=== PATIENT | female | born 1935 | race Caucasian/White ===

== ENCOUNTER 2016-08-17 21:50 | Inpatient (IN) | payer MEDICARE ==
[~2016-08-17] VITALS: Ht 152.4 cm; Wt 54.0 kg
[~2016-08-17 21:50] MED LIST: DOLOPHINE HCL10 MG PO; KLOR-CON 1010 MEQ PO; LASIX20 MG PO; SYNTHROID100 MCG PO; XANAX0.25 MG PO
[2016-08-17 22:22] LABS: BASOPHILS 0 % (0-2); EOSINOPHILS 0 % (0-7); HEMATOCRIT 34.2 % (36.0-48.0); HEMOGLOBIN 10.7 g/dL (12-16); IMMATURE GRANULOCYTES 0.4 % (0-5); LYMPHOCYTES 11.9 % (15-50); MCHC 31.3 g/dL (31.0-37.0); MCV 86.1 fL (80.0-100.0); MEAN PLATELET VOLUME 11.2 fL (7.4-10.4); MONOCYTES 5.1 % (2-11); NEUTROPHILS 82.6 % (40-80); PLATELET COUNT 253 10x3/uL (130-400); RBC 3.97 10x6/uL (4.00-5.40); RDW 15.2 % (11.5-14.5); WBC 7.6 10x3/uL (4.8-10.8)
[2016-08-17 22:24] LABS: APPEARANCE CLEAR (CLEAR); BILIRUBIN NEGATIVE (NEGATIVE); COLOR YELLOW (YELLOW); GLUCOSE NEGATIVE (NEGATIVE); KETONE NEGATIVE (NEGATIVE); LEUKOCYTE ESTERASE NEGATIVE (NEGATIVE); NITRITE NEGATIVE (NEGATIVE); PROTEIN TRACE mg/dL (NEGATIVE); UROBILINOGEN NORMAL (NORMAL)
[2016-08-17 22:59] LABS: ALBUMIN 3.3 g/dL (3.4-5.0); BILIRUBIN - TOTAL 0.25 mg/dL (0.2-1.3); CALCIUM 8.6 mg/dL (8.5-10.1); CARBON DIOXIDE 32.1 mmol/L (21.0-32.0); CREATININE - SERUM 1.2 mg/dL (0.6-1.3); POTASSIUM - SERUM 4.1 mmol/L (3.5-5.1); PROTEIN - SERUM 7.7 g/dL (6.4-8.2)
[2016-08-17 23:47] LABS: THYROID STIMULATING HORMONE 0.12 uIU/mL (0.36-3.74); TROPONIN-I 0.06 ng/mL (0.000-0.060)
[2016-08-18] VITALS (11 sets, daily range): BP systolic 127–166; BP diastolic 59–87; Ht 152.4 cm; Wt 54.0 kg
--- NOTE | 2016-08-18 02:08 | NUR ---
PT RECIEVED. VSS. DENIES NEEDS. ASSESSMENT COMPLETE PER FLOW SHEET. RESTING COMFORTABLY. WILL CONTINUE TO MONITOR.
--- NOTE | 2016-08-18 03:18 | NUR ---
REASSESSMENT COMPLETE PER FLOW SHEET. VSS. NO NEW CHANGES. PT SLEEPING COMFORTABLY. WILL CONTINUE TO MONITOR.
--- NOTE | 2016-08-18 06:01 | NUR ---
VSS NO NEW CHANGES. WILL CONTINUE TO MONITOR.
--- NOTE | 2016-08-18 13:24 | NUR ---
PT ARRIVED TO ROOM VIA BED FROM ICU. PT VS ARE WNL EXCEPT FOR 02 SAT 80%, ICU NURSE DID NOT TRANSFER PT WITH O2. PUT PT ON 2L NC, PT O2 SAT UP TO 92-92%. PT SITTING UP IN BED AWAKE AND ALERT. DAUGHTER AT BEDSIDE. SCDS ON AND PATENT. WILL CONT TO MONITOR
--- NOTE | 2016-08-18 13:39 | NUR ---
CALLED DR COONEY OFFICE SPOKE WITH DARIELA, SHE SAID DR COONEY WAS JUST WAITING ON HER LINE PLACEMENT. TOLD HER THAT PT DOES HAVE LINE NOW, SO SHE WILL LET DR COONEY KNOW THAT PT CAN BE DC BACK TO [facility]
--- NOTE | 2016-08-18 14:26 | NUR ---
TALKED WITH DR CARTY ABOUT DC [facility], DR CARTY GAVE OK TO REMOVE. DC [facility] CATH 9 CC STERILE WATER FROM [place]. PT TOLERATED WELL. TOLD PT TO CALL STAFF WHEN NEED TO VOID HAPPENS. PT VERBALIZES UNDERSTANDING, DAUGHTER AT BEDSIDE.
--- NOTE | 2016-08-18 16:26 | NUR ---
PT ON BTC.sx RUNNING SR 62.
--- NOTE | 2016-08-18 18:36 | NUR ---
PT SITTING UP IN BED LOTS OF FAMILY AT BEDSIDE DENY NEEDS
--- NOTE | 2016-08-18 23:13 | NUR ---
PT LYING IN BED, EYES CLOSED, RESPIRATIONS EVEN AND UNLABORED. DAUGHTER SLEEPING IN CHAIR AT BEDSIDE. I DID HOLD PTS 21:00 METHADONE R/T HER SLEEPING AT THIS TIME. WILL CONTINUE TO MONITOR CLOSELY. BED LOW, CALL LIGHT IN REACH, SIDE RAILS X 2, HOB 30 DEGREES.
[2016-08-19] VITALS: BP 167/79
[2016-08-19 04:00] VITALS: BP 160/78
[2016-08-19 05:13] LABS: BASOPHILS 0.1 % (0-2); EOSINOPHILS 0.3 % (0-7); HEMATOCRIT 31.6 % (36.0-48.0); HEMOGLOBIN 10.3 g/dL (12-16); IMMATURE GRANULOCYTES 0.1 % (0-5); LYMPHOCYTES 39.2 % (15-50); MCH 27.2 pg (26.0-34.0); MCHC 32.6 g/dL (31.0-37.0); MEAN PLATELET VOLUME 10.9 fL (7.4-10.4); MONOCYTES 9.8 % (2-11); NEUTROPHILS 50.5 % (40-80); PLATELET COUNT 240 10x3/uL (130-400); RBC 3.79 10x6/uL (4.00-5.40); RDW 14.9 % (11.5-14.5); WBC 7.4 10x3/uL (4.8-10.8)
[2016-08-19 05:23] LABS: MCV 83.4 fL (80.0-100.0)
[2016-08-19 05:25] LABS: ANION GAP 6.7 mmol/L (8-16); CALCIUM 8.5 mg/dL (8.5-10.1); CARBON DIOXIDE 34.3 mmol/L (21.0-32.0)
[2016-08-19 08:00] VITALS: BP 141/67
--- NOTE | 2016-08-19 08:00 | NUR ---
AM ROUNDING- RECEIVED REPORT FROM BARREL FILLER NURSE THAO, PIERO. PT IS CURRENTLY LAYING IN BED ON BACK WITH EYES CLOSED RESTING. DAUGHTER IS AT BEDSIDE. ON MONITOR SHOWING SR, HR 68. ON 02 AT 2L VIA NC. IV SEEN TO LEFT AC THAT IS CURRENTLY SALINE LOCKED. PTS POTASSIUM IS 3.0 THIS AM. WILL INFORM JUNAID LOVE NP OF THIS WHEN MAKING ROUNDS. WILL CONTINUE TO MONITOR AND CONTINUE WITH PLAN OF CARE.
[2016-08-19 12:00] VITALS: BP 159/68
--- NOTE | 2016-08-19 12:09 | NUR ---
DAUGHTER AT NURSES STATION STATING THAT WHEN PT GOES TO THE BATHROOM IT "SAHA". JUNAID LOVE NP ON UNIT. INFORMED HER OF THIS. VERBAL ORDERS RECEIVED.
[2016-08-19 13:59] LABS: APPEARANCE CLOUDY (CLEAR); COLOR YELLOW (YELLOW); GLUCOSE NEGATIVE (NEGATIVE); KETONE MODERATE mg/dL (NEGATIVE); LEUKOCYTE ESTERASE 1+ (NEGATIVE); NITRITE POSITIVE (NEGATIVE); PROTEIN NEGATIVE (NEGATIVE)
[2016-08-19 14:00] LABS: BILIRUBIN NEGATIVE (NEGATIVE); UROBILINOGEN NORMAL (NORMAL)
[2016-08-19 14:01] LABS: BACTERIA MANY /hpf (NONE SEEN); EPITHELIAL CELLS 0-5 /hpf (0-5); RED CELLS - URINE 0-5 /hpf (0-5)
[2016-08-19 16:00] VITALS: BP 156/65
--- NOTE | 2016-08-19 17:47 | NUR ---
Patient Name: DANIELA MONGE Admission Status: ER Accout number: [id number] Admission Date: 08-18-2016 : 1935 Admission Diagnosis: Attending: AUSTIN Current LOS: 1 Anticipated DC Date: 08-19-2016 Planned Disposition: Home with Home Health Primary Insurance: [employer] ADV PLANNED EXTERNAL PROVIDER: [employer] [facility] Discharge Planning Comments: * Is the patient Alert and Oriented? Yes 0 * How many steps to enter\exit or inside your home? 2 0 * PCP DR. CARTY 0 * Pharmacy [facility] 0 * Preadmission Environment Home with Family 0 * ADLs Independent 0 * Equipment Cane 0 * Other Equipment [facility] - MEDICAL EQUIPMENT PROVIDER PREFERENCE 0 * List name and contact numbers for known caregivers / representatives who currently or will assist patient after discharge: MICHEL SPEARS, DAUGHTER, 0 * Community resources currently utilized None 0 * Please name any agencies selected above. NONE 0 * Additional services required to return to the preadmission environment? No 0 * Can the patient safely return to the preadmission environment? Yes 0 * Has this patient been hospitalized within the prior 30 days at any hospital? No 0 CM MET WITH PT IN ROOM TO DISCUSS DISCHARGE PLANNING AND NEEDS. PT REPORTS LIVING AT HOME INDEPENDENTLY WITH HER ADULT SON. PT'S DAUGHTER LIVES NEXT DOOR. PT HAS A CANE AND WOULD LIKE A WALKER FROM [facility], REQUESTED HOME DELIVERY. PT REQUESTED A BACK BRACE SHE WALKS HUNCHED OVER. CM NOTIFIED SANDRA LOVE WHO INFORMED CM THAT NURSE FROM [facility] WILL ASSIST WITH ANY BRACE ARRANGEMENTS IF NEEDED. PT HAS NO OUTSIDE SERVICES ASSISTING IN THE HOME. CM DISCUSSED AVAILABILITY OF HOME HEALTH, REHAB SERVICES AND MEDICAL EQUIPMENT. PT WANTS HOME HEALTH WITH [facility] SHE HAS USED THEM BEFORE WITH GOOD RESULTS AND WAS RECOMMENDED BY HER PRIMARY CARE DOCTOR.. PT REPORTS HER DAUGHTER IS HERE TO PICK HER UP FOR DISCHARGE HOME. CM RECEIVED ORDERS FOR HOME HEALTH AND A WALKER. CM CALLED [facility], , SPOKE TO MEDICAL AND SCIENTIFIC ILLUSTRATOR NURSE MEYER, PROVIDED REFERRAL INFORMATION AND FAXED INFORMATION TO [phone]. [employer] TO CONTACT PT TOMORROW TO SCHEDULE FOLLOW UP APPOINTMENT FOR HOME ASSESSMENT. CM CALLED [facility], , SPOKE TO RAEGAN WHO HAD ALREADY RECEIVED CALL FROM PT'S DAUGHTER AT HOSPITAL WHO REQUESTED HOME DELIVERY OF WALKER TOMORROW. CM FAXED REFERRAL TO [facility], . PT'S DAUGHTER AND BEDSIDE NURSE NOTIFIED. Patient Safety Tech: [place]
--- NOTE | 2016-08-19 18:33 | NUR ---
D/C INSTRUCTIONS EXPLAINED TO PT. D/C PAPERWORK SIGNED BY PT AND PLACED IN CHART. IV TO LEFT AC REMOVED WITH CATH TIP INTACT, COVERED SITE WITH 2X2 GAUZE AND SECURED WITH TAPE. TOLERATED WELL. HEART MONITOR REMOVED BY DAUGHTER. YANG HOPKINS RETURNED HEART MONITOR TO [facility] WITH TELEMETRY. WILL CONTINUE TO MONITOR.
--- NOTE | 2016-08-19 18:35 | NUR ---
PT D/C VIA WHEELCHAIR.
--- NOTE | 2016-08-19 18:49 | NUR ---
1520 RN [place] UNSURE IF ATTENDING WANTS MRI WILL NOTIFY IF MRI NEEDED
== END 2016-08-19 20:41 | disposition home health service (06) | DRG 918 ==
LOC: D.ER 21:50 → D.M2 08-18 00:04 → D.ICU 08-18 00:04 → D.M2 08-18 13:19
PROVIDERS: Family Medicine; ADMIT Emergency Medicine
DX: T40.3X1A Poisoning by methadone, accidental (unintentional), initial encounter (principal); M19.90 Unspecified osteoarthritis, unspecified site; G89.29 Other chronic pain; J44.9 Chronic obstructive pulmonary disease, unspecified; I10 Essential (primary) hypertension; F41.9 Anxiety disorder, unspecified; F32.9 Major depressive disorder, single episode, unspecified; K21.9 Gastro-esophageal reflux disease without esophagitis; Z72.0 Tobacco use

== ENCOUNTER → 2016-08-24 19:17 | Outpatient (CLI) | payer MEDICARE ==
[2016-08-18 10:30] VITALS: BMI 23.2
[2016-08-24 20:28] LABS: APPEARANCE HAZY (CLEAR); BILIRUBIN NEGATIVE (NEGATIVE); COLOR STRAW (YELLOW); GLUCOSE NEGATIVE (NEGATIVE); KETONE NEGATIVE (NEGATIVE); LEUKOCYTE ESTERASE 2+ (NEGATIVE); NITRITE NEGATIVE (NEGATIVE); PROTEIN NEGATIVE (NEGATIVE); UROBILINOGEN NORMAL (NORMAL)
[2016-08-24 20:29] LABS: BACTERIA MANY /hpf (NONE SEEN); EPITHELIAL CELLS 0-5 /hpf (0-5); WHITE CELLS - URINE >50 /hpf (0-5)
== END | disposition home or self-care (01) ==
LOC: D.LABREF 19:17
PROVIDERS: Emergency Medicine
DX: R41.82 Altered mental status, unspecified (principal); R30.9 Painful micturition, unspecified

== ENCOUNTER 2017-01-19 16:12 | Emergency (ER) | payer MEDICARE ==
[2016-08-18 10:30] VITALS: BMI 23.2
== END 2017-01-19 16:55 | disposition home or self-care (01) ==
LOC: D.ER 16:12
DX: G89.4 Chronic pain syndrome (principal); Z76.0 Encounter for issue of repeat prescription

== ENCOUNTER 2017-04-08 13:35 | Inpatient (IN) | payer MEDICARE ==
[~2017-04-08] VITALS: Ht 152.4 cm; Wt 50.1 kg
--- NOTE | ~2017-04-08 | EC ---
PATIENT:DANIELA MONGE DATE OF SERVICE: 04/08/17 SEX: F MEDICAL RECORD: [id number] DATE OF : [birth year] LOCATION:[facility] AGE OF PATIENT: 82 ADMISSION DATE: 04/08/17 REFERRING PHYSICIAN: INTERPRETING PHYSICIAN: ALYSON VERDE MD ECHOCARDIOGRAM REPORT ECHO CHARGES 4 ECHO COMPLETE CLINICAL DIAGNOSIS: DYSPNEA ECHOCARDIOGRAPHIC MEASUREMENTS (adult normal given) AC root (d.<3.7cm) 2.7 cm LV Septum d (<1.2 cm> 1.3 cm Valve Excursion 1.4 cm LV Septum (systole) 1.6 cm Left Atria (s.<4.0cm> 3.4 cm LVPW d(<1.2cm) 1.1 cm RV (d.<2.3cm) 2.1 cm LVPW (sytole) 1.9 cm LV diastole(<5.6CM) 4.2 cm MV E-F(>70mm/sec) cm LV systole 2.3 cm LVOT Diameter 1.6 cm MV exc.(>10mm) cm Est.ejection fraction (50-75%) % Pericardial Effusion N DOPPLER: LVIT cm/sec A 114 cm/sec E 35.0 cm/sec LA cm/sec RVSP 35.2 mmHg LVOT 105 cm/sec AOP1/2T m/s Asc. Ao 156 cm/sec RVOT 66.0 cm/sec RA cm/sec PA 90.0 cm/sec AV Gradient Peak 9.7 mmHg AV Mean 5.3 mmHg AV Area 1.2 cm MV Gradient Peak 7.5 mmHg MV Mean 2.2 mmHg MV Area cm COMMENTS: Renewable Energy Engineer: Kirsty GALARZAOE Molder Inflated Ball: 4 Dr. Verde TAPE# PACS DATE OF SERVICE: 04/09/2017 PROCEDURE: Transthoracic echocardiogram. FINDINGS: 1. The patient has evidence of mild left ventricular hypertrophy and flow characteristics consistent with diastolic dysfunction with normal LV systolic function. No evidence of regional wall motion abnormalities. 2. The left atrium is normal size, normal function. 3. The aortic valve is trileaflet and normal. ECHOCARDIOGRAM REPORT [id number] DANIELA MONGE 4. The mitral valve has trace mitral regurgitation. 5. The tricuspid valve has mild tricuspid regurgitation. 6. The pericardium is normal. 7. The pulmonic valve has trace pulmonic insufficiency. 8. The right atrium is normal size, normal function. 9. The right ventricle has normal size, normal function. CONCLUSION: For the age, the patient has normal echocardiogram. TRANSINT:[id number] Voice Confirmation ID: [id number] DOCUMENT ID: [id number] 04/15/2017 Edited to correct date of service, dm. ALYSON VERDE MD at 1038 CC: [id number] DICTATION DATE: 04/10/17 1031 SOAKERS SUPERVISOR: 04/10/17 1129 DIS IN 04/16/17 [facility] [address] [place] [address]
[2017-04-08 14:10] LABS: UDS - AMPHET NEGATIVE QUAL (NEGATIVE); UDS - BARB NEGATIVE QUAL (NEGATIVE); UDS - BENZO NEGATIVE QUAL (NEGATIVE); UDS - COCAINE NEGATIVE QUAL (NEGATIVE); UDS - OPIATE NEGATIVE QUAL (NEGATIVE); UDS - PCP NEGATIVE QUAL (NEGATIVE); UDS - THC NEGATIVE QUAL (NEGATIVE)
[2017-04-08 14:13] LABS: APPEARANCE CLEAR (CLEAR); BILIRUBIN NEGATIVE (NEGATIVE); COLOR YELLOW (YELLOW); GLUCOSE NEGATIVE (NEGATIVE); KETONE SMALL mg/dL (NEGATIVE); NITRITE NEGATIVE (NEGATIVE); PROTEIN 1+ mg/dL (NEGATIVE); SPECIFIC GRAVITY 1.025 (1.005-1.020); UROBILINOGEN NORMAL (NORMAL)
[2017-04-08 14:15] LABS: BACTERIA FEW /hpf (NONE SEEN); EPITHELIAL CELLS 0-5 /hpf (0-5); GRANULAR CAST OCC /lpf (NONE SEEN); HYALINE CAST 0-5 /lpf (NONE SEEN); MUCUS <1+ /lpf (NONE SEEN); RED CELLS - URINE 0-5 /hpf (0-5); WHITE CELLS - URINE 0-5 /hpf (0-5); YEAST <1+ /hpf (NONE SEEN)
[2017-04-08 14:16] LABS: AMORPHOUS SEDIMENT >1+ /lpf (NONE SEEN)
[2017-04-08 14:26] LABS: BASOPHILS 0.1 % (0-2); EOSINOPHILS 0 % (0-7); HEMOGLOBIN 11.3 g/dL (12-16); IMMATURE GRANULOCYTES 0.5 % (0-5); LYMPHOCYTES 6.7 % (15-50); MCHC 32.3 g/dL (31.0-37.0); MCV 86.8 fL (80.0-100.0); MEAN PLATELET VOLUME 10.6 fL (7.4-10.4); MONOCYTES 4.2 % (2-11); NEUTROPHILS 88.5 % (40-80); RBC 4.03 10x6/uL (4.00-5.40); RDW 16.1 % (11.5-14.5); WBC 11.6 10x3/uL (4.8-10.8)
[2017-04-08 14:36] LABS: ALBUMIN 3.1 g/dL (3.4-5.0); ALKALINE PHOSPHATASE 73 U/L (46-116); ALT (SGPT) 61 U/L (10-68); BILIRUBIN - TOTAL 0.35 mg/dL (0.2-1.3); CALC OSMOLALITY 279 mosm/kg (275-300); CALCIUM 8.8 mg/dL (8.5-10.1); CARBON DIOXIDE 25.1 mmol/L (21.0-32.0); CHLORIDE - SERUM 98 mmol/L (98-107); CREATININE - SERUM 1.5 mg/dL (0.6-1.3); GLUCOSE 210 mg/dL (74-106); POTASSIUM - SERUM 3.3 mmol/L (3.5-5.1); PROTEIN - SERUM 7.7 g/dL (6.4-8.2); SODIUM 135 mmol/L (136-145); UREA NITROGEN 25 mg/dL (7-18); eGFR NON AFRICAN AMERICAN 35 mL/min (90-120)
[2017-04-08 14:36] LABS: PLATELET COUNT 156 10x3/uL (130-400)
[2017-04-08 14:53] LABS: CREATINE KINASE 89 UL (21-215); PRO BNP 7232 pg/mL (0-450)
[2017-04-08 14:57] LABS: TROPONIN-I 0.344 ng/mL (0.000-0.060)
[2017-04-08 20:50] LABS: TROPONIN-I 0.3 ng/mL (0.000-0.060)
[2017-04-08 23:14] VITALS: BP 103/56; BMI 23.2
[2017-04-09 01:06] VITALS: BP 112/56
[2017-04-09 03:15] LABS: CKMB 2.2 U/L (0.0-3.6); CREATINE KINASE 70 UL (21-215)
[2017-04-09 03:20] LABS: TROPONIN-I 0.207 ng/mL (0.000-0.060)
[2017-04-09 07:32] LABS: BASOPHILS 0 % (0-2); EOSINOPHILS 0 % (0-7); HEMATOCRIT 30.9 % (36.0-48.0); HEMOGLOBIN 10.2 g/dL (12-16); IMMATURE GRANULOCYTES 0.3 % (0-5); LYMPHOCYTES 7.8 % (15-50); MCH 27.3 pg (26.0-34.0); MEAN PLATELET VOLUME 10.7 fL (7.4-10.4); MONOCYTES 7.6 % (2-11); NEUTROPHILS 84.3 % (40-80); PLATELET COUNT 172 10x3/uL (130-400); RBC 3.74 10x6/uL (4.00-5.40); RDW 15.9 % (11.5-14.5); WBC 11.8 10x3/uL (4.8-10.8)
[2017-04-09 07:36] LABS: MCV 82.6 fL (80.0-100.0)
[2017-04-09 08:38] LABS: ALBUMIN 2.5 g/dL (3.4-5.0); ANION GAP 11.9 mmol/L (8-16); BILIRUBIN - TOTAL 0.39 mg/dL (0.2-1.3); CALCIUM 8.7 mg/dL (8.5-10.1); CARBON DIOXIDE 26.4 mmol/L (21.0-32.0); CREATININE - SERUM 1.4 mg/dL (0.6-1.3); POTASSIUM - SERUM 4.3 mmol/L (3.5-5.1); PROTEIN - SERUM 6.6 g/dL (6.4-8.2); TROPONIN-I 0.143 ng/mL (0.000-0.060)
[2017-04-09 08:45] VITALS: BP 107/71
[2017-04-09 11:58] VITALS: BMI 23.8
[2017-04-09 12:45] VITALS: BP 145/71
[2017-04-09 17:29] VITALS: BP 153/88
[2017-04-09 20:12] VITALS: Ht 152.4 cm; Wt 50.1 kg
[2017-04-10] VITALS: BP 146/72
[2017-04-10 04:00] VITALS: BP 125/71
[2017-04-10 06:44] LABS: BASOPHILS 0.1 % (0-2); EOSINOPHILS 0.1 % (0-7); HEMATOCRIT 29.5 % (36.0-48.0); HEMOGLOBIN 9.8 g/dL (12-16); IMMATURE GRANULOCYTES 0.3 % (0-5); LYMPHOCYTES 14.3 % (15-50); MCH 27.5 pg (26.0-34.0); MCHC 33.2 g/dL (31.0-37.0); MCV 82.6 fL (80.0-100.0); MONOCYTES 6.9 % (2-11); NEUTROPHILS 78.3 % (40-80); RBC 3.57 10x6/uL (4.00-5.40); RDW 16.3 % (11.5-14.5); WBC 11.3 10x3/uL (4.8-10.8)
[2017-04-10 06:54] LABS: PLATELET COUNT 214 10x3/uL (130-400)
[2017-04-10 07:10] LABS: ALBUMIN 2.3 g/dL (3.4-5.0); ANION GAP 13.4 mmol/L (8-16); BILIRUBIN - TOTAL 0.39 mg/dL (0.2-1.3); CALCIUM 8.7 mg/dL (8.5-10.1); CARBON DIOXIDE 24.6 mmol/L (21.0-32.0); CREATININE - SERUM 1.1 mg/dL (0.6-1.3); PROTEIN - SERUM 6.2 g/dL (6.4-8.2)
[2017-04-10 10:47] VITALS: BP 156/89
[2017-04-10 17:00] VITALS: BP 157/89
[2017-04-10 22:16] VITALS: BP 158/57
[2017-04-11 01:22] VITALS: BP 130/79
[2017-04-11 05:19] VITALS: BP 147/71
[2017-04-11 07:32] LABS: BASOPHILS 0.2 % (0-2); EOSINOPHILS 0 % (0-7); HEMATOCRIT 31.7 % (36.0-48.0); HEMOGLOBIN 10.6 g/dL (12-16); IMMATURE GRANULOCYTES 0.8 % (0-5); LYMPHOCYTES 13.9 % (15-50); MCH 27.5 pg (26.0-34.0); MCHC 33.4 g/dL (31.0-37.0); MCV 82.3 fL (80.0-100.0); MEAN PLATELET VOLUME 10.5 fL (7.4-10.4); NEUTROPHILS 77.1 % (40-80); PLATELET COUNT 228 10x3/uL (130-400); RBC 3.85 10x6/uL (4.00-5.40); RDW 16.4 % (11.5-14.5)
[2017-04-11 07:51] LABS: ALBUMIN 2.5 g/dL (3.4-5.0); BILIRUBIN - TOTAL 0.28 mg/dL (0.2-1.3); CALCIUM 8.3 mg/dL (8.5-10.1); CARBON DIOXIDE 24.2 mmol/L (21.0-32.0); POTASSIUM - SERUM 4.2 mmol/L (3.5-5.1); PROTEIN - SERUM 6.3 g/dL (6.4-8.2)
[2017-04-11 08:34] VITALS: BP 136/80
[2017-04-11 12:33] VITALS: BP 138/85
[2017-04-11 16:51] VITALS: BP 153/86
[2017-04-11 22:17] VITALS: BP 133/84
[2017-04-12 02:28] VITALS: BP 104/62
[2017-04-12 04:41] VITALS: BP 117/67
[2017-04-12 06:15] LABS: BASOPHILS 0.1 % (0-2); EOSINOPHILS 0 % (0-7); HEMATOCRIT 30.1 % (36.0-48.0); IMMATURE GRANULOCYTES 1.4 % (0-5); LYMPHOCYTES 15.8 % (15-50); MCH 27.2 pg (26.0-34.0); MCHC 33.2 g/dL (31.0-37.0); MONOCYTES 13.9 % (2-11); NEUTROPHILS 68.8 % (40-80); PLATELET COUNT 222 10x3/uL (130-400); RBC 3.67 10x6/uL (4.00-5.40); RDW 16.4 % (11.5-14.5)
[2017-04-12 06:17] LABS: WBC 9.1 10x3/uL (4.8-10.8)
[2017-04-12 07:04] LABS: ALBUMIN 2.4 g/dL (3.4-5.0); BILIRUBIN - TOTAL 0.21 mg/dL (0.2-1.3); CALCIUM 8.6 mg/dL (8.5-10.1); CARBON DIOXIDE 24.9 mmol/L (21.0-32.0); POTASSIUM - SERUM 3.9 mmol/L (3.5-5.1); PROTEIN - SERUM 6.2 g/dL (6.4-8.2)
[2017-04-12 08:26] VITALS: BP 112/50
[2017-04-12 12:27] VITALS: BP 141/62
[2017-04-12 16:51] VITALS: BP 104/72
[2017-04-12 20:51] VITALS: BP 137/74
[2017-04-13 05:45] LABS: BASOPHILS 0.1 % (0-2); EOSINOPHILS 0 % (0-7); HEMATOCRIT 31.9 % (36.0-48.0); HEMOGLOBIN 10.7 g/dL (12-16); IMMATURE GRANULOCYTES 2.1 % (0-5); LYMPHOCYTES 21.1 % (15-50); MCH 27.4 pg (26.0-34.0); MCHC 33.5 g/dL (31.0-37.0); MCV 81.6 fL (80.0-100.0); MONOCYTES 15.3 % (2-11); NEUTROPHILS 61.4 % (40-80); PLATELET COUNT 258 10x3/uL (130-400); RBC 3.91 10x6/uL (4.00-5.40); RDW 16.7 % (11.5-14.5); WBC 9.8 10x3/uL (4.8-10.8)
[2017-04-13 05:53] VITALS: BP 104/61
[2017-04-13 06:00] LABS: ALBUMIN 2.4 g/dL (3.4-5.0); BILIRUBIN - TOTAL 0.24 mg/dL (0.2-1.3); CALCIUM 8.7 mg/dL (8.5-10.1); CARBON DIOXIDE 28.1 mmol/L (21.0-32.0); PROTEIN - SERUM 6.1 g/dL (6.4-8.2)
[2017-04-13 06:21] LABS: ANION GAP 10.4 mmol/L (8-16); POTASSIUM - SERUM 4.5 mmol/L (3.5-5.1)
[2017-04-13 07:21] LABS: IMMUNOGLOBULIN E 291 IU/mL (0-100)
[2017-04-13 08:44] VITALS: BP 127/75
[2017-04-13 11:53] VITALS: BP 156/89
[2017-04-13 16:17] VITALS: BP 126/76
[2017-04-13 20:00] VITALS: BP 118/57
[2017-04-14] VITALS: BP 122/60
[2017-04-14 08:33] VITALS: BP 132/62
[2017-04-14 12:57] VITALS: BP 147/91
[2017-04-14 17:04] VITALS: BP 172/99
[2017-04-14 20:00] VITALS: BP 139/78
[2017-04-15 04:00] VITALS: BP 129/68
[2017-04-15 07:26] LABS: ALBUMIN 2.2 g/dL (3.4-5.0); ANION GAP 10.6 mmol/L (8-16); BILIRUBIN - TOTAL 0.22 mg/dL (0.2-1.3); CARBON DIOXIDE 26.3 mmol/L (21.0-32.0); POTASSIUM - SERUM 3.9 mmol/L (3.5-5.1); PROTEIN - SERUM 5.7 g/dL (6.4-8.2)
[2017-04-15 07:27] LABS: BASOPHILS 0.1 % (0-2); EOSINOPHILS 0.7 % (0-7); HEMATOCRIT 29.8 % (36.0-48.0); LYMPHOCYTES 35.7 % (15-50); MCH 27.5 pg (26.0-34.0); MCHC 33.6 g/dL (31.0-37.0); MCV 82.1 fL (80.0-100.0); MEAN PLATELET VOLUME 9.8 fL (7.4-10.4); MONOCYTES 9.5 % (2-11); PLATELET COUNT 255 10x3/uL (130-400); RBC 3.63 10x6/uL (4.00-5.40); RDW 16.6 % (11.5-14.5); WBC 8.9 10x3/uL (4.8-10.8)
[2017-04-15 08:16] VITALS: BP 122/71
[2017-04-15 12:57] VITALS: BP 154/81
[2017-04-15 16:14] VITALS: BP 142/85
[2017-04-15 20:00] VITALS: BP 128/78
[2017-04-16] VITALS: BP 138/81
[2017-04-16 04:00] VITALS: BP 120/54
[2017-04-16 09:03] VITALS: BP 138/83
[2017-04-16] MEDS ORDERED: ALBUTEROL2.5 MG/3 M UPD (10:32)
[2017-04-16] MEDS ORDERED: BROVANA15 MCG/2 M INH (10:32)
[2017-04-16] MEDS ORDERED: NICODERM C1 PATCH .1 TRANSDERM (10:33)
[2017-04-16] MEDS ORDERED: METHADONE 10 MG10 MG PO (10:33)
[2017-04-16] MEDS ORDERED: SINGULAIR10 MG PO (10:34)
[2017-04-16] MEDS ORDERED: MIRALAX17 GM PO (10:35)
== END 2017-04-16 18:38 | disposition home health service (06) | DRG 871 ==
LOC: D.ER 13:35 → D.MS 18:19
PROVIDERS: Emergency Medicine; Family Medicine; Internal Medicine Nephrology; Internal Medicine Pulmonary Disease
DX: A41.9 Sepsis, unspecified organism (principal); G93.41 Metabolic encephalopathy; R53.2 Functional quadriplegia; J96.21 Acute and chronic respiratory failure with hypoxia; J69.0 Pneumonitis due to inhalation of food and vomit; E87.1 Hypo-osmolality and hyponatremia; F17.203 Nicotine dependence unspecified, with withdrawal; I50.30 Unspecified diastolic (congestive) heart failure; J90 Pleural effusion, not elsewhere classified; J98.11 Atelectasis; R41.0 Disorientation, unspecified; E87.6 Hypokalemia; J44.9 Chronic obstructive pulmonary disease, unspecified; F41.8 Other specified anxiety disorders; E83.51 Hypocalcemia; E03.9 Hypothyroidism, unspecified; I25.9 Chronic ischemic heart disease, unspecified; R13.10 Dysphagia, unspecified; I10 Essential (primary) hypertension

== ENCOUNTER 2017-04-27 10:47 | Inpatient (IN) | payer MEDICARE, MEDICAID ==
[2017-04-27] VITALS (11 sets, daily range): BP systolic 103–157; BP diastolic 55–78; BMI 21.2
[~2017-04-27] VITALS: Ht 157.5 cm; Wt 46.5 kg
[~2017-04-27 10:47] MED LIST changes: +ALBUTEROL2.5 MG/3 M UPD; +BROVANA15 MCG/2 M INH; +METHADONE 10 MG10 MG PO; +MIRALAX17 GM PO; +NICODERM C1 PATCH .1 TRANSDERM; +SINGULAIR10 MG PO
[2017-04-27 11:55] LABS: ALBUMIN 2.8 g/dL (3.4-5.0); ANION GAP 14.3 mmol/L (8-16); BILIRUBIN - TOTAL 0.2 mg/dL (0.2-1.3); CALCIUM 8.2 mg/dL (8.5-10.1); CARBON DIOXIDE 28.4 mmol/L (21.0-32.0); CREATININE - SERUM 0.9 mg/dL (0.6-1.3); POTASSIUM - SERUM 4.7 mmol/L (3.5-5.1); PROTEIN - SERUM 6.8 g/dL (6.4-8.2)
[2017-04-27 11:59] LABS: APPEARANCE CLOUDY (CLEAR); BILIRUBIN NEGATIVE (NEGATIVE); COLOR YELLOW (YELLOW); GLUCOSE NEGATIVE (NEGATIVE); KETONE NEGATIVE (NEGATIVE); NITRITE NEGATIVE (NEGATIVE); PROTEIN NEGATIVE (NEGATIVE); SPECIFIC GRAVITY 1.015 (1.005-1.020); UDS - AMPHET NEGATIVE QUAL (NEGATIVE); UDS - BARB NEGATIVE QUAL (NEGATIVE); UDS - BENZO NEGATIVE QUAL (NEGATIVE); UDS - COCAINE NEGATIVE QUAL (NEGATIVE); UDS - OPIATE NEGATIVE QUAL (NEGATIVE); UDS - PCP NEGATIVE QUAL (NEGATIVE); UDS - THC NEGATIVE QUAL (NEGATIVE); UROBILINOGEN NORMAL (NORMAL)
[2017-04-27 12:02] LABS: BACTERIA FEW /hpf (NONE SEEN); EPITHELIAL CELLS 0-5 /hpf (0-5); MUCUS <1+ /lpf (NONE SEEN); RED CELLS - URINE 0-5 /hpf (0-5); WHITE CELLS - URINE OCC /hpf (0-5)
[2017-04-27 12:03] LABS: GRANULAR CAST 0-5 /lpf (NONE SEEN)
[2017-04-27 12:10] LABS: HYALINE CAST RARE /lpf (NONE SEEN)
[2017-04-27 12:29] LABS: MAGNESIUM - SERUM 2.2 mg/dL (1.8-2.4)
[2017-04-27 12:35] LABS: TROPONIN-I 0.127 ng/mL (0.000-0.060)
[2017-04-27 13:00] LABS: BASOPHILS 0 % (0-2); EOSINOPHILS 0.2 % (0-7); HEMATOCRIT 35.6 % (36.0-48.0); HEMOGLOBIN 11.2 g/dL (12-16); IMMATURE GRANULOCYTES 0.4 % (0-5); MCH 27.7 pg (26.0-34.0); MCHC 31.5 g/dL (31.0-37.0); MCV 88.1 fL (80.0-100.0); MONOCYTES 7.2 % (2-11); NEUTROPHILS 65.2 % (40-80); PLATELET COUNT 248 10x3/uL (130-400); RBC 4.04 10x6/uL (4.00-5.40); RDW 16.2 % (11.5-14.5); WBC 4.6 10x3/uL (4.8-10.8)
[2017-04-28] VITALS (26 sets, daily range): BP systolic 108–165; BP diastolic 54–90; Ht 157.5 cm; Wt 46.5 kg
[2017-04-28 04:31] LABS: ALBUMIN 2.2 g/dL (3.4-5.0); ANION GAP 9.7 mmol/L (8-16); BILIRUBIN - TOTAL 0.25 mg/dL (0.2-1.3); CALCIUM 7.8 mg/dL (8.5-10.1); CARBON DIOXIDE 31.5 mmol/L (21.0-32.0); POTASSIUM - SERUM 4.2 mmol/L (3.5-5.1); PROTEIN - SERUM 6.2 g/dL (6.4-8.2)
[2017-04-28 04:37] LABS: BASOPHILS 0.1 % (0-2); EOSINOPHILS 0 % (0-7); HEMATOCRIT 32.5 % (36.0-48.0); HEMOGLOBIN 10.3 g/dL (12-16); IMMATURE GRANULOCYTES 0.1 % (0-5); LYMPHOCYTES 16.3 % (15-50); MCH 27.7 pg (26.0-34.0); MCHC 31.7 g/dL (31.0-37.0); MCV 87.4 fL (80.0-100.0); MEAN PLATELET VOLUME 11.1 fL (7.4-10.4); MONOCYTES 8.1 % (2-11); NEUTROPHILS 75.4 % (40-80); PLATELET COUNT 212 10x3/uL (130-400); RBC 3.72 10x6/uL (4.00-5.40); RDW 16.2 % (11.5-14.5); WBC 8.5 10x3/uL (4.8-10.8)
[2017-04-28] MEDS ORDERED: KLONOPIN0.5 MG PO (09:06)
[2017-04-28] MEDS ORDERED: LYRICA25 MG (09:07)
[2017-04-29] VITALS (21 sets, daily range): BP systolic 124–176; BP diastolic 63–91
[2017-04-29 03:52] LABS: BASOPHILS 0.2 % (0-2); EOSINOPHILS 2.1 % (0-7); HEMATOCRIT 29.2 % (36.0-48.0); HEMOGLOBIN 9.3 g/dL (12-16); LYMPHOCYTES 22.1 % (15-50); MCH 27.2 pg (26.0-34.0); MCHC 31.8 g/dL (31.0-37.0); MONOCYTES 8.9 % (2-11); NEUTROPHILS 66.7 % (40-80); PLATELET COUNT 199 10x3/uL (130-400); RBC 3.42 10x6/uL (4.00-5.40); RDW 16.3 % (11.5-14.5)
[2017-04-29 03:54] LABS: MCV 85.4 fL (80.0-100.0); WBC 5.8 10x3/uL (4.8-10.8)
[2017-04-29 04:20] LABS: ANION GAP 9.5 mmol/L (8-16); BILIRUBIN - TOTAL 0.4 mg/dL (0.2-1.3); CALCIUM 7.7 mg/dL (8.5-10.1); MAGNESIUM - SERUM 2.1 mg/dL (1.8-2.4); PHOSPHOROUS 1.7 mg/dL (2.5-4.9); PROTEIN - SERUM 5.6 g/dL (6.4-8.2)
[2017-04-29 04:21] LABS: POTASSIUM - SERUM 3.5 mmol/L (3.5-5.1)
[2017-04-30 03:00] VITALS: BP 147/87
[2017-04-30 05:59] LABS: BASOPHILS 0.2 % (0-2); EOSINOPHILS 1.9 % (0-7); HEMATOCRIT 29.5 % (36.0-48.0); HEMOGLOBIN 9.6 g/dL (12-16); IMMATURE GRANULOCYTES 0.4 % (0-5); LYMPHOCYTES 18.6 % (15-50); MCH 27.2 pg (26.0-34.0); MCHC 32.5 g/dL (31.0-37.0); MCV 83.6 fL (80.0-100.0); MEAN PLATELET VOLUME 10.8 fL (7.4-10.4); MONOCYTES 7.9 % (2-11); RBC 3.53 10x6/uL (4.00-5.40); RDW 16.2 % (11.5-14.5); WBC 5.7 10x3/uL (4.8-10.8)
[2017-04-30 06:01] LABS: PLATELET COUNT 154 10x3/uL (130-400)
[2017-04-30 06:22] LABS: ANION GAP 12.3 mmol/L (8-16); BILIRUBIN - TOTAL 0.61 mg/dL (0.2-1.3); CALCIUM 7.9 mg/dL (8.5-10.1); CARBON DIOXIDE 26.1 mmol/L (21.0-32.0); CREATININE - SERUM 0.8 mg/dL (0.6-1.3); POTASSIUM - SERUM 3.4 mmol/L (3.5-5.1); PROTEIN - SERUM 5.7 g/dL (6.4-8.2)
[2017-04-30 07:00] VITALS: BP 161/89
[2017-04-30 11:00] VITALS: BP 142/71
[2017-04-30 15:00] VITALS: BP 123/74
[2017-04-30 20:00] VITALS: BP 140/78
[2017-04-30 23:53] VITALS: BP 121/65
[2017-05-01 02:50] VITALS: BP 114/65
[2017-05-01 06:28] LABS: BASOPHILS 0.2 % (0-2); EOSINOPHILS 4.3 % (0-7); HEMATOCRIT 27.5 % (36.0-48.0); IMMATURE GRANULOCYTES 0.5 % (0-5); LYMPHOCYTES 31.2 % (15-50); MCH 27.4 pg (26.0-34.0); MCHC 32.7 g/dL (31.0-37.0); MCV 83.6 fL (80.0-100.0); MEAN PLATELET VOLUME 9.8 fL (7.4-10.4); MONOCYTES 13.8 % (2-11); RBC 3.29 10x6/uL (4.00-5.40); RDW 16.7 % (11.5-14.5)
[2017-05-01 06:34] LABS: PLATELET COUNT 228 10x3/uL (130-400); WBC 4.1 10x3/uL (4.8-10.8)
[2017-05-01 06:53] LABS: ALBUMIN 1.9 g/dL (3.4-5.0); ANION GAP 10.2 mmol/L (8-16); BILIRUBIN - TOTAL 0.41 mg/dL (0.2-1.3); CALCIUM 7.9 mg/dL (8.5-10.1); CARBON DIOXIDE 26.5 mmol/L (21.0-32.0); CREATININE - SERUM 0.8 mg/dL (0.6-1.3); MAGNESIUM - SERUM 1.9 mg/dL (1.8-2.4); POTASSIUM - SERUM 3.7 mmol/L (3.5-5.1); PROTEIN - SERUM 5.6 g/dL (6.4-8.2)
[2017-05-01 06:55] LABS: PHOSPHOROUS 3.1 mg/dL (2.5-4.9)
[2017-05-01 08:42] VITALS: BP 139/75
[2017-05-01 12:27] VITALS: BP 153/78
[2017-05-01 16:30] VITALS: BP 150/73
[2017-05-01 20:00] VITALS: BP 138/83
[2017-05-02] VITALS: BP 136/64
[2017-05-02 04:00] VITALS: BP 105/66
[2017-05-02 04:28] LABS: BASOPHILS 0.2 % (0-2); EOSINOPHILS 6.6 % (0-7); HEMATOCRIT 27.1 % (36.0-48.0); HEMOGLOBIN 8.8 g/dL (12-16); IMMATURE GRANULOCYTES 0.6 % (0-5); LYMPHOCYTES 36.9 % (15-50); MCH 27.1 pg (26.0-34.0); MCHC 32.5 g/dL (31.0-37.0); MCV 83.4 fL (80.0-100.0); MEAN PLATELET VOLUME 9.7 fL (7.4-10.4); MONOCYTES 14.1 % (2-11); NEUTROPHILS 41.6 % (40-80); PLATELET COUNT 227 10x3/uL (130-400); RBC 3.25 10x6/uL (4.00-5.40); RDW 16.6 % (11.5-14.5); WBC 4.9 10x3/uL (4.8-10.8)
[2017-05-02 05:52] LABS: ALBUMIN 1.9 g/dL (3.4-5.0); ANION GAP 12.8 mmol/L (8-16); BILIRUBIN - TOTAL 0.3 mg/dL (0.2-1.3); CALCIUM 7.9 mg/dL (8.5-10.1); CARBON DIOXIDE 26.1 mmol/L (21.0-32.0); CREATININE - SERUM 0.9 mg/dL (0.6-1.3); POTASSIUM - SERUM 3.9 mmol/L (3.5-5.1); PROTEIN - SERUM 5.4 g/dL (6.4-8.2)
[2017-05-02 08:33] VITALS: BP 118/64
[2017-05-02 12:08] VITALS: BP 139/73
[2017-05-02 15:40] VITALS: BP 133/83
[2017-05-02 20:00] VITALS: BP 140/81
[2017-05-03 04:00] VITALS: BP 123/75
[2017-05-03 05:50] LABS: BASOPHILS 0.4 % (0-2); EOSINOPHILS 7.6 % (0-7); HEMATOCRIT 29.1 % (36.0-48.0); HEMOGLOBIN 9.4 g/dL (12-16); IMMATURE GRANULOCYTES 0.8 % (0-5); LYMPHOCYTES 38.4 % (15-50); MCH 27.5 pg (26.0-34.0); MCHC 32.3 g/dL (31.0-37.0); MCV 85.1 fL (80.0-100.0); MEAN PLATELET VOLUME 9.9 fL (7.4-10.4); NEUTROPHILS 41.8 % (40-80); PLATELET COUNT 247 10x3/uL (130-400); RBC 3.42 10x6/uL (4.00-5.40); RDW 16.6 % (11.5-14.5)
[2017-05-03 06:05] LABS: ANION GAP 10.9 mmol/L (8-16); BILIRUBIN - TOTAL 0.3 mg/dL (0.2-1.3); CARBON DIOXIDE 27.2 mmol/L (21.0-32.0); POTASSIUM - SERUM 4.1 mmol/L (3.5-5.1); PROTEIN - SERUM 5.6 g/dL (6.4-8.2)
[2017-05-03 09:29] VITALS: BP 151/69
[2017-05-03 14:18] VITALS: BP 128/81
[2017-05-03] MEDS ORDERED: MUCINEX DM ER1 EAC1 PO (14:25)
[2017-05-03] MEDS ORDERED: BENZONATATE200 MG PO (14:25)
[2017-05-03] MEDS ORDERED: AUGMENTIN 875-11 TAB PO (14:25)
[2017-05-03] MEDS ORDERED: FLUTICASONE PRO16 GM NASAL (14:26)
[2017-05-03] MEDS ORDERED: FLORAJEN3 CAPS460 MG PO (14:26)
[2017-05-03] MEDS ORDERED: HYDROCODON-ACET15 ML PO (14:28)
== END 2017-05-03 16:45 | disposition home health service (06) | DRG 871 ==
LOC: D.ER 10:47 → D.ICU 13:28 → D.MS 04-30 19:47
PROVIDERS: Emergency Medicine; Family Medicine; Internal Medicine Nephrology
PROC: 0T9B70Z Drainage of Bladder with Drainage Device, Via Natural or Artificial Opening (ICD-10-PCS; principal; 2017-04-27)
DX: A41.9 Sepsis, unspecified organism (principal); J96.21 Acute and chronic respiratory failure with hypoxia; J69.0 Pneumonitis due to inhalation of food and vomit; G93.41 Metabolic encephalopathy; R53.2 Functional quadriplegia; J98.11 Atelectasis; J90 Pleural effusion, not elsewhere classified; M35.1 Other overlap syndromes; I50.32 Chronic diastolic (congestive) heart failure; I13.0 Hypertensive heart and chronic kidney disease with heart failure and stage 1 through stage 4 chronic kidney disease, or unspecified chronic kidney disease; E44.0 Moderate protein-calorie malnutrition; F17.203 Nicotine dependence unspecified, with withdrawal; J44.1 Chronic obstructive pulmonary disease with (acute) exacerbation; N39.0 Urinary tract infection, site not specified; R65.20 Severe sepsis without septic shock; K21.9 Gastro-esophageal reflux disease without esophagitis; F41.8 Other specified anxiety disorders; K59.00 Constipation, unspecified; D64.9 Anemia, unspecified; J30.9 Allergic rhinitis, unspecified; J32.9 Chronic sinusitis, unspecified; E03.9 Hypothyroidism, unspecified; N18.3 Chronic kidney disease, stage 3 (moderate); Z68.20 Body mass index [BMI] 20.0-20.9, adult; E87.6 Hypokalemia; T40.3X1A Poisoning by methadone, accidental (unintentional), initial encounter

== ENCOUNTER 2017-05-30 13:31 | Emergency (ER) | payer MEDICARE, MEDICAID ==
[2017-04-28 11:02] VITALS: BMI 20.6
[~2017-05-30 13:31] MED LIST changes: +AUGMENTIN 875-11 TAB PO; +BENZONATATE200 MG PO; +FLORAJEN3 CAPS460 MG PO; +FLUTICASONE PRO16 GM NASAL; +HYDROCODON-ACET15 ML PO; +KLONOPIN0.5 MG PO; +LYRICA25 MG; +MUCINEX DM ER1 EAC1 PO
== END 2017-05-30 19:09 | disposition home or self-care (01) ==
LOC: D.ER 13:31
DX: J06.9 Acute upper respiratory infection, unspecified (principal)

== ENCOUNTER 2017-07-13 11:44 | Emergency (ER) | payer MEDICARE, MEDICAID ==
[2017-07-04 13:07] VITALS: BMI 16.3
[~2017-07-13 11:44] MED LIST changes: +DIFLUCAN100 MG PO; +HYDROCODONE-APA1 TAB PO; -LYRICA25 MG; +LYRICA25 MG PO
[2017-07-13 12:04] LABS: APPEARANCE CLEAR (CLEAR); BILIRUBIN NEGATIVE (NEGATIVE); COLOR YELLOW (YELLOW); GLUCOSE NEGATIVE (NEGATIVE); KETONE MODERATE mg/dL (NEGATIVE); NITRITE NEGATIVE (NEGATIVE); PROTEIN NEGATIVE (NEGATIVE); UROBILINOGEN NORMAL (NORMAL)
[2017-07-13 12:33] LABS: BASOPHILS 0.6 % (0-2); EOSINOPHILS 0.5 % (0-7); HEMATOCRIT 35.2 % (36.0-48.0); HEMOGLOBIN 11.6 g/dL (12-16); IMMATURE GRANULOCYTES 0.1 % (0-5); LYMPHOCYTES 33.2 % (15-50); MEAN PLATELET VOLUME 11.3 fL (7.4-10.4); MONOCYTES 8.9 % (2-11); NEUTROPHILS 56.7 % (40-80); RDW 17.3 % (11.5-14.5); WBC 7.7 10x3/uL (4.8-10.8)
[2017-07-13 12:34] LABS: PLATELET COUNT 315 10x3/uL (130-400)
[2017-07-13 13:12] LABS: ALBUMIN 3.6 g/dL (3.4-5.0); ANION GAP 18.4 mmol/L (8-16); BILIRUBIN - TOTAL 0.55 mg/dL (0.2-1.3); CALCIUM 9.2 mg/dL (8.5-10.1); CARBON DIOXIDE 23.3 mmol/L (21.0-32.0); CREATININE - SERUM 0.8 mg/dL (0.6-1.3); POTASSIUM - SERUM 4.7 mmol/L (3.5-5.1); PROTEIN - SERUM 8.6 g/dL (6.4-8.2)
== END 2017-07-13 14:45 | disposition home or self-care (01) ==
LOC: D.ER 11:44
PROVIDERS: Emergency Medicine
DX: R53.1 Weakness (principal); R05 Cough

== ENCOUNTER 2017-12-18 13:16 | Inpatient (IN) | payer MEDICARE, MEDICAID ==
[~2017-12-18] VITALS: Ht 157.5 cm; Wt 51.5 kg
--- NOTE | ~2017-12-18 | OP ---
PATIENT NAME: DANIELA MONGE MEDICAL RECORD: [id number] :[birth year] LOCATION:[facility] D.2304 ADMISSION DATE:12/18/17 SURGEON: PUNEET HENSON MD DATE OF OPERATION: 12/26/2017 SURGEON: Puneet Henson MD PREOPERATIVE DIAGNOSIS: Small-bowel obstruction. POSTOPERATIVE DIAGNOSIS: Small-bowel obstruction. PROCEDURE PERFORMED: Exploratory laparotomy, right hemicolectomy, extensive lysis of adhesions, fascial closure with mesh, left subclavian central venous line. ANESTHESIA: General. COMPLICATIONS: None. SPECIMENS: Terminal ileum and cecum. ESTIMATED BLOOD LOSS: 250 cc. OPERATIVE COURSE: After consent was obtained, the patient was taken to the operating room and placed in supine position on the operating table. The left chest and neck were prepped and draped in typical sterile fashion. Local anesthetic was injected in the left subclavian. Vein was cannulated in the first pass. A guidewire was placed, dilator was passed with a sheath in standard Seldinger fashion. The catheter was passed through the wire in a standard Seldinger fashion and secured to the skin using 2-0 nylon suture and sterile Tegaderm dressing. All 3 ports were aspirated and flushed. At this time, the abdomen was prepped and draped in typical sterile fashion and Ioban dressing was placed. The lower midline abdominal incision was made from the umbilicus to the pubic tubercle using a 10-blade scalpel. Dissection continued to the subcutaneous tissue using electrocautery. The fascia was incised with electrocautery. At this time, under direct vision, the remaining portion of the fascia was opened with electrocautery. The Rob wound retractor was placed. Several liters of fluid were suctioned from the abdomen and sent for Gram stain, culture and sensitivity. There was markedly dilated small bowel. Small bowel was extracorporealized and placed towards the right upper quadrant. There was a dense stricture, had adhesioned the terminal ileum within the pelvis. This was meticulously dissected out of the pelvis. The right ureter was identified and dissected free. The cecum was mobilized. At this time, an ileocecectomy was performed taking the distal 15 cm of the ileum and the cecum. The enterotomies were made. A common enterotomy was made with a GEORGINA stapler. The common enterotomy was closed with a GEORGINA stapler. The remaining portion of the specimen was passed off the field and sent for permanent pathology. The entire staple line was imbricated using 3-0 silk suture. At this time, the small bowel was run again from the ligament of Treitz to the ileocolonic anastomosis. Multiple dense small bowel adhesions were taken using sharp scissor Metzenbaum dissection. Multiple serosal defects were closed with 3-0 silk suture. A МАРИНА drain was placed into the right lower quadrant. Then, the abdomen was copiously irrigated with several liters of warm normal saline. All members of the surgical team changed gown and gloves. The sterile fascial closure table was then used. Subcutaneous tissue flaps were created. The fascia was then closed OPERATIVE REPORT [id number] DANIELA MONGE with 0 looped Prolene suture. A Phasix 10 x 15 cm mesh was placed onto the anterior fascia and secured using 3-0 Vicryl suture. The incision was then closed with noah. The МАРИНА drain was secured with 3-0 nylon. At the end of the case, all needle and instrument counts were correct. No complications occurred. The patient was transferred to the ICU in guarded condition on the ventilator. TRANSINT:[id number] Voice Confirmation ID: [id number] DOCUMENT ID: [id number] PUNEET HENSON MD at 1733 CC: [id number] DICTATION DATE: 12/26/17 1209 SCREEN PRINTING MACHINE LOADER UNLOADER: 12/26/17 1249 ADM IN [facility] [address] [place] [address]
--- NOTE | ~2017-12-18 | CN ---
PATIENT NAME:DANIELA MONGE MEDICAL RECORD: [id number] : 39 LOCATION:[facility]26 ADMIT DATE: 12/18/17 ACCOUNT: [id number] CONSULTING PHYSICIAN: BANDAR KELLY MD REFERRING PHYSICIAN: ALEJANDRA PARIKH MD DATE OF CONSULTATION: 12/28/2017 REASON FOR CONSULTATION: Acute hypoxic respiratory failure. HISTORY OF PRESENT ILLNESS: Ms. Monge is an 82-year-old female, who was admitted with abdominal pain, nausea, and vomiting. The patient underwent a right hemicolectomy on 12/26/2017. Since then, the patient has increasing oxygen requirement. She also has worsening shortness of breath. She has coughed with very little sputum production. Denies any fever or chills. No night sweats. She does complain of abdominal pain. REVIEW OF SYSTEMS: Mainly in the history of present illness. PAST MEDICAL HISTORY: 1. COPD. 2. Hypertension. 3. Asthma. 4. Gastroesophageal reflux disease. 5. CHF with chronic diastolic dysfunction. 6. History of pneumonia. 7. Anxiety, depression. PAST SURGICAL HISTORY: 1. Hysterectomy. 2. Left forearm ORIF. 3. Thyroidectomy. ALLERGIES: SHE IS ALLERGIC TO MOLD, BENADRYL. MEDICATIONS: Credit Benchmark is reviewed. PERSONAL AND SOCIAL HISTORY: The patient is still every day smoker. She is also drinking occasionally. FAMILY HISTORY: Significant for cardiovascular diseases. PHYSICAL EXAMINATION: GENERAL: The patient is lying comfortable in bed. She is in mild distress. VITAL SIGNS: The blood pressure is a 114/68, pulse is 86, respiration is 18, temperature 98.1, and SPO2 is 97% on 15 liter oxymizer. HEENT: Conjunctivae are pink. Sclerae are not icteric. NECK: Supple, no JVD. CHEST: There are bilateral crackles, wheeze on forceful expiration. HEART: Rate and rhythm is regular, normal sound. ABDOMEN: Soft, bowel sounds present. No hepatosplenomegaly. RECTAL: Deferred. EXTREMITIES: No cyanosis, no clubbing. There is no pedal edema. CHEST RADIOGRAPH: There is bilateral infiltrate, left lower lobe more than the right. CONSULT REPORT [id number] DANIELA MONGE OTHER LABORATORY DATA: CBC: WBC is 19.4, hemoglobin 9, hematocrit 25.9, the platelet count is 222. Chemistry: Sodium is 132, potassium 3.9, BUN is 20, creatinine 0.5. IMPRESSION: 1. Acute hypoxic respiratory failure. 2. Bilateral pneumonia. 3. Bilateral pleural effusion. 4. Acute exacerbation of chronic obstructive pulmonary disease. 5. Leukocytosis. 6. Anemia. 7. Status post right hemicolectomy. 8. Tobacco dependence syndrome. RECOMMENDATION: 1. Continue the supplemental oxygen. I will start her on vancomycin, cefepime and Levaquin to cover for the hospital-acquired pneumonia. 2. Methylprednisolone IV. 3. Start Brovana and budesonide nebulizer. 4. Albuterol ipratropium nebulizer with IPPB. 5. Acapella and incentive spirometry every 2 hourly when the patient is awake. 6. Follow up labs and chest radiograph in the morning. Discussed with the respiratory therapist and RN. Dr. Peters, thank you for involving me in the care of Ms. Monge. The critical care time is 45 minutes. TRANSINT:[id number] Voice Confirmation ID: [id number] DOCUMENT ID: [id number] BANDAR KELLY MD at 1301 CC: [id number] DICTATION DATE: 12/29/17 1133 SURVEILLANCE AGENT: 12/29/17 1149 DIS IN 01/09/18 [place] [id number] [place] [address]
--- NOTE | ~2017-12-18 | OP ---
PATIENT NAME: DANIELA MONGE MEDICAL RECORD: [id number] :37 LOCATION:D.[facility]2227 ADMISSION DATE:12/18/17 SURGEON: BANDAR KELLY MD DATE OF OPERATION: 12/29/2017 PROCEDURE: Fiberoptic bronchoscopy. INDICATION: Ms. Monge is an 82-year-old female who underwent partial colectomy. She has bilateral pneumonia. This morning, the patient has total atelectasis of the left lung with mediastinal shift to the left. Fiberoptic bronchoscopy was carried out to remove the mucous plugging. While there was excessive secretion, the patient was intubated after the first attempt of suction. MONITORING: EKG, pulse, and blood pressure were monitored throughout the procedure. PROCEDURE IN DETAIL: The patient was intubated by Dr. Saranya agosto. The main trachea was normal. Actually, there was almost filling of the main trachea as well as the left and the right main bronchus. After clearing the secretion, the beltran was sharp. The right main bronchus was normal. The subsegment to the right upper lobe, right middle lobe, and right lower lobe within normal range. There were severe bronchitic changes. All the segments were filled with mucus. The left main bronchus was normal. The subsegment to the left upper lobe, lingula, and left lower lobe within normal range after suctioning and clearing the mucus secretion. The left main was full with thick yellowish secretion. Specimen washing was obtained and sent for routine culture and sensitivity, fungus, and cytology. We will leave the patient intubated. Followup labs and chest radiograph. TRANSINT:[id number] Voice Confirmation ID: [id number] DOCUMENT ID: [id number] BANDAR KELLY MD at 1301 CC: [id number] DICTATION DATE: 12/29/17 1230 WOOD TYPE CUTTER: 12/29/17 1245 DIS IN 01/09/18 [place] [id number]
--- NOTE | ~2017-12-18 | OP ---
PATIENT NAME: DANIELA MONGE MEDICAL RECORD: [id number] :37 LOCATION:D.[facility]222[facility]ul ADMISSION DATE:12/18/17 SURGEON: PUNEET HENSON MD DATE OF OPERATION: 01/06/2018 PREOPERATIVE DIAGNOSES: 1. Acute blood loss anemia. 2. History of small bowel resection. PROCEDURES: 1. Evacuation of incisional hematoma. 2. Negative pressure wound VAC therapy. ESTIMATED BLOOD LOSS: 2 liters. ANESTHESIA: General. COMPLICATIONS: None. SPECIMENS: None. Case was clean. OPERATIVE COURSE: After consent was obtained, the patient was taken to the operating room and placed in the supine position on the operating room table. General anesthesia was given via endotracheal intubation after a timeout was performed to confirm the correct patient and procedure. Abdomen was prepped and draped in typical sterile fashion. Midline abdominal incisions were removed. Approximately, 2 liters of clotted blood were removed from the subcutaneous tissue above the intact fascial repair. The area was irrigated with 2 liters of warm normal saline. There was no active bleeding noted. Multiple areas of the superficial tissue were cauterized. The fascia was closed and intact. The area was covered with Surgicel powder. After adequate hemostasis was obtained, the subcutaneous tissue was reapproximated using 3-0 Vicryl sutures. A silver wound VAC was placed over the closed subcutaneous tissue approximately 10 cm in length, 4 cm in width, 4 cm in depth. It was placed to suction with good seal. At the end of the case, all needle and instrument counts were correct. No complications occurred. The patient was extubated and transferred to PACU in stable condition. TRANSINT:[id number] Voice Confirmation ID: [id number] DOCUMENT ID: [id number] PUNEET HENSON MD at 1053 CC: [id number] DICTATION DATE: 01/06/18 1005 WORM FARMER: 01/06/18 1018 [place] [address]
[2017-12-18 13:59] LABS: BASOPHILS 0.3 % (0-2); EOSINOPHILS 0 % (0-7); HEMATOCRIT 30.8 % (36.0-48.0); HEMOGLOBIN 10.5 g/dL (12-16); IMMATURE GRANULOCYTES 0.1 % (0-5); LYMPHOCYTES 23.5 % (15-50); MCH 30.3 pg (26.0-34.0); MCHC 34.1 g/dL (31.0-37.0); MCV 88.8 fL (80.0-100.0); MEAN PLATELET VOLUME 10.4 fL (7.4-10.4); MONOCYTES 8.7 % (2-11); NEUTROPHILS 67.4 % (40-80); PLATELET COUNT 259 10x3/uL (130-400); RBC 3.47 10x6/uL (4.00-5.40); RDW 14.1 % (11.5-14.5); WBC 7.5 10x3/uL (4.8-10.8)
[2017-12-18 14:14] LABS: APPEARANCE CLOUDY (CLEAR); COLOR YELLOW (YELLOW)
[2017-12-18 14:16] LABS: AMORPHOUS SEDIMENT <1+ /lpf (NONE SEEN); BACTERIA MODERATE /hpf (NONE SEEN); EPITHELIAL CELLS OCC /hpf (0-5); MUCUS <1+ /lpf (NONE SEEN); RED CELLS - URINE 0-5 /hpf (0-5); WHITE CELLS - URINE >50 /hpf (0-5)
[2017-12-18 14:21] LABS: ALBUMIN 3.5 g/dL (3.4-5.0); ALKALINE PHOSPHATASE 30 U/L (46-116); ALT (SGPT) 18 U/L (10-68); BILIRUBIN - TOTAL 0.66 mg/dL (0.2-1.3); CALCIUM 8.6 mg/dL (8.5-10.1); CARBON DIOXIDE 17.8 mmol/L (21.0-32.0); CHLORIDE - SERUM 98 mmol/L (98-107); CREATININE - SERUM 1.4 mg/dL (0.6-1.3); POTASSIUM - SERUM 3.9 mmol/L (3.5-5.1); PRO BNP 137 pg/mL (0-450); SODIUM 137 mmol/L (136-145); UREA NITROGEN 27 mg/dL (7-18); eGFR NON AFRICAN AMERICAN 38 mL/min (90-120)
[2017-12-18 14:30] VITALS: BP 134/72
[2017-12-18 14:31] LABS: CALC OSMOLALITY 275 mosm/kg (275-300); GLUCOSE 38 mg/dL (74-106); TROPONIN-I < 0.017 ng/mL (0.000-0.060)
[2017-12-18 15:18] VITALS: BP 133/67
[2017-12-18 15:34] VITALS: BP 130/70
[2017-12-18 16:15] VITALS: BP 151/76
[2017-12-18 20:23] VITALS: BP 106/58
[2017-12-19 04:27] VITALS: BP 92/49
[2017-12-19 05:34] LABS: BASOPHILS 0.3 % (0-2); EOSINOPHILS 2.4 % (0-7); HEMOGLOBIN 10.1 g/dL (12-16); LYMPHOCYTES 33.9 % (15-50); MCHC 33.7 g/dL (31.0-37.0); MEAN PLATELET VOLUME 10.2 fL (7.4-10.4); NEUTROPHILS 54.4 % (40-80); PLATELET COUNT 241 10x3/uL (130-400); RBC 3.37 10x6/uL (4.00-5.40); RDW 14.4 % (11.5-14.5); WBC 6.7 10x3/uL (4.8-10.8)
[2017-12-19 05:56] LABS: BILIRUBIN - TOTAL 0.4 mg/dL (0.2-1.3); CALCIUM 8.3 mg/dL (8.5-10.1); CREATININE - SERUM 1.3 mg/dL (0.6-1.3); PROTEIN - SERUM 6.2 g/dL (6.4-8.2)
[2017-12-19 05:59] LABS: ANION GAP 12.3 mmol/L (8-16); CARBON DIOXIDE 25.7 mmol/L (21.0-32.0)
[2017-12-19 08:07] VITALS: BP 91/51
[2017-12-19 12:32] VITALS: BP 91/52
[2017-12-19 13:49] VITALS: BMI 13.1
[2017-12-19 16:31] VITALS: BP 92/52
[2017-12-19 23:15] VITALS: BP 82/55
[2017-12-20 04:40] VITALS: BP 99/65
[2017-12-20 08:23] VITALS: BP 98/65
[2017-12-20 11:28] VITALS: BP 105/71
[2017-12-20 15:54] VITALS: BP 117/74
[2017-12-20 21:31] VITALS: BP 121/83
[2017-12-21 05:13] VITALS: BP 127/64
[2017-12-21 08:31] VITALS: BP 121/63
[2017-12-21 13:20] VITALS: BP 122/70
[2017-12-21 16:24] VITALS: BP 125/76
[2017-12-21 20:12] VITALS: BP 119/72
[2017-12-22 05:21] VITALS: BP 127/80
[2017-12-22 05:23] LABS: BASOPHILS 0.1 % (0-2); EOSINOPHILS 0.1 % (0-7); HEMATOCRIT 33.8 % (36.0-48.0); HEMOGLOBIN 11.4 g/dL (12-16); IMMATURE GRANULOCYTES 0.2 % (0-5); LYMPHOCYTES 7.7 % (15-50); MCH 30.2 pg (26.0-34.0); MCHC 33.7 g/dL (31.0-37.0); MCV 89.4 fL (80.0-100.0); MEAN PLATELET VOLUME 10.3 fL (7.4-10.4); MONOCYTES 7.4 % (2-11); NEUTROPHILS 84.5 % (40-80); PLATELET COUNT 324 10x3/uL (130-400); RBC 3.78 10x6/uL (4.00-5.40); RDW 14.5 % (11.5-14.5); WBC 13.7 10x3/uL (4.8-10.8)
[2017-12-22 05:48] LABS: ANION GAP 15.5 mmol/L (8-16); CALCIUM 8.2 mg/dL (8.5-10.1); CARBON DIOXIDE 24.6 mmol/L (21.0-32.0); CREATININE - SERUM 1.1 mg/dL (0.6-1.3); POTASSIUM - SERUM 4.1 mmol/L (3.5-5.1)
[2017-12-22 08:48] VITALS: BP 118/65
[2017-12-22 12:45] VITALS: BP 129/75
[2017-12-22 16:57] VITALS: BP 158/78
[2017-12-22 20:00] VITALS: BP 110/65
[2017-12-23 01:02] VITALS: BP 124/70
[2017-12-23 05:02] VITALS: BP 114/74
[2017-12-23 05:21] LABS: BASOPHILS 0.1 % (0-2); EOSINOPHILS 0.1 % (0-7); IMMATURE GRANULOCYTES 0.6 % (0-5); LYMPHOCYTES 8.4 % (15-50); MCHC 33.3 g/dL (31.0-37.0); MCV 90.1 fL (80.0-100.0); MEAN PLATELET VOLUME 9.5 fL (7.4-10.4); MONOCYTES 7.5 % (2-11); NEUTROPHILS 83.3 % (40-80); PLATELET COUNT 260 10x3/uL (130-400); RBC 3.33 10x6/uL (4.00-5.40); RDW 14.6 % (11.5-14.5)
[2017-12-23 05:30] LABS: WBC 17.2 10x3/uL (4.8-10.8)
[2017-12-23 05:51] LABS: ANION GAP 14.6 mmol/L (8-16); CALCIUM 7.9 mg/dL (8.5-10.1); CARBON DIOXIDE 24.6 mmol/L (21.0-32.0); CREATININE - SERUM 1.1 mg/dL (0.6-1.3); POTASSIUM - SERUM 4.2 mmol/L (3.5-5.1)
[2017-12-23 08:54] VITALS: BP 101/59
[2017-12-23 16:28] VITALS: BP 148/72
[2017-12-23 20:00] VITALS: BP 114/63
[2017-12-23 21:58] VITALS: Ht 157.5 cm; Wt 51.5 kg
[2017-12-24] VITALS: BP 100/59
[2017-12-24 04:00] VITALS: BP 98/54
[2017-12-24 06:36] LABS: BASOPHILS 0.1 % (0-2); HEMATOCRIT 27.5 % (36.0-48.0); HEMOGLOBIN 9.2 g/dL (12-16); IMMATURE GRANULOCYTES 0.5 % (0-5); MCH 29.9 pg (26.0-34.0); MCHC 33.5 g/dL (31.0-37.0); MCV 89.3 fL (80.0-100.0); MEAN PLATELET VOLUME 9.9 fL (7.4-10.4); MONOCYTES 6.8 % (2-11); NEUTROPHILS 78.6 % (40-80); PLATELET COUNT 248 10x3/uL (130-400); RBC 3.08 10x6/uL (4.00-5.40); RDW 14.8 % (11.5-14.5); WBC 14.5 10x3/uL (4.8-10.8)
[2017-12-24 07:06] LABS: ANION GAP 11.2 mmol/L (8-16); CALCIUM 7.7 mg/dL (8.5-10.1); CARBON DIOXIDE 21.8 mmol/L (21.0-32.0); CREATININE - SERUM 0.9 mg/dL (0.6-1.3)
[2017-12-24 08:05] VITALS: BP 119/64
[2017-12-24 11:37] VITALS: BP 133/70
[2017-12-24 16:48] VITALS: BP 131/72
[2017-12-24 20:00] VITALS: BP 136/69
[2017-12-25] VITALS: BP 140/84
[2017-12-25 04:00] VITALS: BP 148/88
[2017-12-25 05:16] LABS: BASOPHILS 0.1 % (0-2); EOSINOPHILS 0.7 % (0-7); HEMATOCRIT 32.4 % (36.0-48.0); IMMATURE GRANULOCYTES 0.4 % (0-5); LYMPHOCYTES 13.4 % (15-50); MCH 30.2 pg (26.0-34.0); MCHC 34.6 g/dL (31.0-37.0); MEAN PLATELET VOLUME 10.2 fL (7.4-10.4); MONOCYTES 6.1 % (2-11); NEUTROPHILS 79.3 % (40-80); PLATELET COUNT 263 10x3/uL (130-400); RDW 14.3 % (11.5-14.5); WBC 14.8 10x3/uL (4.8-10.8)
[2017-12-25 05:31] LABS: ALBUMIN 2.2 g/dL (3.4-5.0); ANION GAP 16.6 mmol/L (8-16); BILIRUBIN - TOTAL 0.39 mg/dL (0.2-1.3); CALCIUM 7.9 mg/dL (8.5-10.1); CARBON DIOXIDE 20.1 mmol/L (21.0-32.0); CREATININE - SERUM 0.8 mg/dL (0.6-1.3); MAGNESIUM - SERUM 1.9 mg/dL (1.8-2.4); POTASSIUM - SERUM 3.7 mmol/L (3.5-5.1); PROTEIN - SERUM 5.4 g/dL (6.4-8.2)
[2017-12-25 05:34] LABS: HEMOGLOBIN 11.2 g/dL (12-16); MCV 87.3 fL (80.0-100.0); RBC 3.71 10x6/uL (4.00-5.40)
[2017-12-25 05:37] LABS: PHOSPHOROUS 1.3 mg/dL (2.5-4.9)
[2017-12-25 08:28] VITALS: BP 147/88
[2017-12-25 11:31] VITALS: BP 145/89
[2017-12-25 16:29] VITALS: BP 149/94
[2017-12-25 21:07] VITALS: BP 151/95
[2017-12-26] VITALS (16 sets, daily range): BP systolic 83–184; BP diastolic 57–89
[2017-12-26 05:56] LABS: BASOPHILS 0.1 % (0-2); EOSINOPHILS 0.3 % (0-7); HEMATOCRIT 29.7 % (36.0-48.0); HEMOGLOBIN 10.5 g/dL (12-16); IMMATURE GRANULOCYTES 0.4 % (0-5); LYMPHOCYTES 14.3 % (15-50); MCHC 35.4 g/dL (31.0-37.0); MONOCYTES 7.8 % (2-11); NEUTROPHILS 77.1 % (40-80); PLATELET COUNT 249 10x3/uL (130-400); RDW 14.2 % (11.5-14.5)
[2017-12-26 06:00] LABS: MCV 84.9 fL (80.0-100.0); WBC 9.4 10x3/uL (4.8-10.8)
[2017-12-26 06:01] LABS: CALCIUM 7.2 mg/dL (8.5-10.1); CARBON DIOXIDE 23.1 mmol/L (21.0-32.0); CHLORIDE - SERUM 99 mmol/L (98-107); CREATININE - SERUM 0.6 mg/dL (0.6-1.3); GLUCOSE 93 mg/dL (74-106); SODIUM 132 mmol/L (136-145); eGFR NON AFRICAN AMERICAN > 90 mL/min (90-120)
[2017-12-26 06:03] LABS: CALC OSMOLALITY 265 mosm/kg (275-300); PHOSPHOROUS 2.6 mg/dL (2.5-4.9); POTASSIUM - SERUM 3.1 mmol/L (3.5-5.1); UREA NITROGEN 15 mg/dL (7-18)
[2017-12-26 10:00] LABS: INR 1.19 (0.85-1.17); PROTIME 14.7 SECONDS (11.6-15.0)
[2017-12-26 10:01] LABS: APTT 40.5 SECONDS (22.8-39.4)
[2017-12-26 17:21] LABS: HEMATOCRIT 33.1 % (36.0-48.0); HEMOGLOBIN 11.5 g/dL (12-16)
[2017-12-26 19:37] LABS: CKMB 1.8 U/L (0.0-3.6); CREATINE KINASE 51 UL (21-215)
[2017-12-27] VITALS (25 sets, daily range): BP systolic 123–155; BP diastolic 75–113
[2017-12-27 01:40] LABS: CKMB 1.5 U/L (0.0-3.6); CREATINE KINASE 74 UL (21-215)
[2017-12-27 01:42] LABS: TROPONIN-I 0.063 ng/mL (0.000-0.060)
[2017-12-27 06:03] LABS: BASOPHILS 0.1 % (0-2); EOSINOPHILS 0 % (0-7); HEMATOCRIT 26.5 % (36.0-48.0); IMMATURE GRANULOCYTES 0.4 % (0-5); LYMPHOCYTES 6.7 % (15-50); MCH 29.8 pg (26.0-34.0); MEAN PLATELET VOLUME 10.1 fL (7.4-10.4); NEUTROPHILS 87.8 % (40-80); RBC 3.02 10x6/uL (4.00-5.40); RDW 14.5 % (11.5-14.5)
[2017-12-27 06:10] LABS: MCV 87.7 fL (80.0-100.0); PLATELET COUNT 189 10x3/uL (130-400); WBC 14.9 10x3/uL (4.8-10.8)
[2017-12-27 06:41] LABS: CALC OSMOLALITY 270 mosm/kg (275-300); CARBON DIOXIDE 18.6 mmol/L (21.0-32.0); CHLORIDE - SERUM 105 mmol/L (98-107); CKMB 1.4 U/L (0.0-3.6); CREATINE KINASE 64 UL (21-215); CREATININE - SERUM 0.7 mg/dL (0.6-1.3); GLUCOSE 101 mg/dL (74-106); SODIUM 135 mmol/L (136-145); TROPONIN-I 0.053 ng/mL (0.000-0.060); UREA NITROGEN 16 mg/dL (7-18); eGFR NON AFRICAN AMERICAN 85 mL/min (90-120)
[2017-12-27 06:48] LABS: CALCIUM 6.6 mg/dL (8.5-10.1); PHOSPHOROUS 1.7 mg/dL (2.5-4.9)
[2017-12-27 07:16] LABS: ALBUMIN 2.1 g/dL (3.4-5.0); MAGNESIUM - SERUM 1.4 mg/dL (1.8-2.4)
[2017-12-28] VITALS (25 sets, daily range): BP systolic 103–157; BP diastolic 65–98
[2017-12-28 04:27] LABS: BASOPHILS 0.1 % (0-2); EOSINOPHILS 0.9 % (0-7); HEMATOCRIT 25.9 % (36.0-48.0); IMMATURE GRANULOCYTES 0.7 % (0-5); LYMPHOCYTES 7.5 % (15-50); MCH 30.2 pg (26.0-34.0); MCHC 34.7 g/dL (31.0-37.0); MCV 86.9 fL (80.0-100.0); MEAN PLATELET VOLUME 10.4 fL (7.4-10.4); NEUTROPHILS 85.8 % (40-80); PLATELET COUNT 222 10x3/uL (130-400); RBC 2.98 10x6/uL (4.00-5.40); RDW 14.4 % (11.5-14.5); WBC 19.4 10x3/uL (4.8-10.8)
[2017-12-28 04:47] LABS: CALC OSMOLALITY 267 mosm/kg (275-300); CARBON DIOXIDE 20.7 mmol/L (21.0-32.0); CHLORIDE - SERUM 103 mmol/L (98-107); GLUCOSE 95 mg/dL (74-106); PHOSPHOROUS 1.9 mg/dL (2.5-4.9); POTASSIUM - SERUM 3.9 mmol/L (3.5-5.1); SODIUM 132 mmol/L (136-145); UREA NITROGEN 20 mg/dL (7-18)
[2017-12-28 04:53] LABS: CREATININE - SERUM 0.5 mg/dL (0.6-1.3); eGFR NON AFRICAN AMERICAN > 90 mL/min (90-120)
[2017-12-28 05:04] LABS: MAGNESIUM - SERUM 1.9 mg/dL (1.8-2.4)
[2017-12-29] VITALS (25 sets, daily range): BP systolic 87–153; BP diastolic 52–84
[2017-12-29 05:36] LABS: BASOPHILS 0.1 % (0-2); EOSINOPHILS 0 % (0-7); HEMATOCRIT 24.8 % (36.0-48.0); HEMOGLOBIN 8.9 g/dL (12-16); IMMATURE GRANULOCYTES 0.4 % (0-5); LYMPHOCYTES 3.5 % (15-50); MCH 30.4 pg (26.0-34.0); MCHC 35.9 g/dL (31.0-37.0); MEAN PLATELET VOLUME 10.5 fL (7.4-10.4); MONOCYTES 2.3 % (2-11); NEUTROPHILS 93.7 % (40-80); RBC 2.93 10x6/uL (4.00-5.40); RDW 14.2 % (11.5-14.5); WBC 15.1 10x3/uL (4.8-10.8)
[2017-12-29 05:43] LABS: MCV 84.6 fL (80.0-100.0); PLATELET COUNT 283 10x3/uL (130-400)
[2017-12-29 05:56] LABS: CALC OSMOLALITY 267 mosm/kg (275-300); CALCIUM 7.4 mg/dL (8.5-10.1); CARBON DIOXIDE 22.3 mmol/L (21.0-32.0); CHLORIDE - SERUM 102 mmol/L (98-107); CREATININE - SERUM 0.6 mg/dL (0.6-1.3); MAGNESIUM - SERUM 1.7 mg/dL (1.8-2.4); PHOSPHOROUS 2.2 mg/dL (2.5-4.9); POTASSIUM - SERUM 3.4 mmol/L (3.5-5.1); SODIUM 131 mmol/L (136-145); UREA NITROGEN 18 mg/dL (7-18); eGFR NON AFRICAN AMERICAN > 90 mL/min (90-120)
[2017-12-29 06:02] LABS: GLUCOSE 158 mg/dL (74-106)
[2017-12-29 18:55] LABS: PHOSPHOROUS 2.4 mg/dL (2.5-4.9); POTASSIUM - SERUM 3.9 mmol/L (3.5-5.1)
[2017-12-30] VITALS (25 sets, daily range): BP systolic 81–133; BP diastolic 58–81
[2017-12-30 06:39] LABS: CALC OSMOLALITY 275 mosm/kg (275-300); CALCIUM 7.1 mg/dL (8.5-10.1); CARBON DIOXIDE 20.1 mmol/L (21.0-32.0); CHLORIDE - SERUM 106 mmol/L (98-107); CREATININE - SERUM 0.7 mg/dL (0.6-1.3); GLUCOSE 162 mg/dL (74-106); PHOSPHOROUS 2.7 mg/dL (2.5-4.9); POTASSIUM - SERUM 3.6 mmol/L (3.5-5.1); SODIUM 135 mmol/L (136-145); UREA NITROGEN 17 mg/dL (7-18); eGFR NON AFRICAN AMERICAN 85 mL/min (90-120)
[2017-12-30 06:42] LABS: MAGNESIUM - SERUM 2.2 mg/dL (1.8-2.4)
[2017-12-30 07:10] LABS: BASOPHILS 0.1 % (0-2); EOSINOPHILS 0 % (0-7); HEMATOCRIT 21.9 % (36.0-48.0); HEMOGLOBIN 7.8 g/dL (12-16); IMMATURE GRANULOCYTES 0.5 % (0-5); LYMPHOCYTES 5.6 % (15-50); MCH 30.6 pg (26.0-34.0); MCHC 35.6 g/dL (31.0-37.0); MCV 85.9 fL (80.0-100.0); MEAN PLATELET VOLUME 9.7 fL (7.4-10.4); MONOCYTES 6.5 % (2-11); NEUTROPHILS 87.3 % (40-80); PLATELET COUNT 316 10x3/uL (130-400); RBC 2.55 10x6/uL (4.00-5.40); RDW 14.8 % (11.5-14.5); WBC 17.4 10x3/uL (4.8-10.8)
[2017-12-30 14:23] LABS: AFB SPECIMEN PROCESSING Concentration (()); FUNGUS STAIN Final report (())
[2017-12-30 20:08] LABS: ACID FAST SMEAR Negative (())
[2017-12-31] VITALS (26 sets, daily range): BP systolic 36–144; BP diastolic 60–76
[2017-12-31 04:57] LABS: BASOPHILS 0 % (0-2); EOSINOPHILS 0 % (0-7); HEMATOCRIT 30.3 % (36.0-48.0); HEMOGLOBIN 10.8 g/dL (12-16); IMMATURE GRANULOCYTES 0.4 % (0-5); LYMPHOCYTES 5.6 % (15-50); MCH 30.3 pg (26.0-34.0); MCHC 35.6 g/dL (31.0-37.0); MCV 84.9 fL (80.0-100.0); MEAN PLATELET VOLUME 9.9 fL (7.4-10.4); PLATELET COUNT 295 10x3/uL (130-400); RBC 3.57 10x6/uL (4.00-5.40); RDW 14.7 % (11.5-14.5); WBC 12.9 10x3/uL (4.8-10.8)
[2017-12-31 05:07] LABS: ANION GAP 10.5 mmol/L (8-16); CARBON DIOXIDE 21.9 mmol/L (21.0-32.0); MAGNESIUM - SERUM 2.5 mg/dL (1.8-2.4)
[2017-12-31 05:17] LABS: CREATININE - SERUM 0.9 mg/dL (0.6-1.3); POTASSIUM - SERUM 4.4 mmol/L (3.5-5.1)
[2018-01-01] VITALS (21 sets, daily range): BP systolic 72–155; BP diastolic 28–82
[2018-01-01 04:36] LABS: BASOPHILS 0 % (0-2); EOSINOPHILS 0 % (0-7); HEMATOCRIT 31.6 % (36.0-48.0); IMMATURE GRANULOCYTES 0.7 % (0-5); LYMPHOCYTES 4.6 % (15-50); MCH 30.1 pg (26.0-34.0); MCHC 34.8 g/dL (31.0-37.0); MCV 86.6 fL (80.0-100.0); MEAN PLATELET VOLUME 9.4 fL (7.4-10.4); MONOCYTES 4.2 % (2-11); NEUTROPHILS 90.5 % (40-80); PLATELET COUNT 310 10x3/uL (130-400); RBC 3.65 10x6/uL (4.00-5.40); RDW 15.5 % (11.5-14.5); WBC 10.9 10x3/uL (4.8-10.8)
[2018-01-02] VITALS (24 sets, daily range): BP systolic 74–145; BP diastolic 43–94
[2018-01-03] VITALS (24 sets, daily range): BP systolic 134–178; BP diastolic 66–95
[2018-01-03 05:37] LABS: BASOPHILS 0 % (0-2); HEMATOCRIT 31.2 % (36.0-48.0); HEMOGLOBIN 10.4 g/dL (12-16); IMMATURE GRANULOCYTES 0.9 % (0-5); LYMPHOCYTES 12.9 % (15-50); MCH 29.9 pg (26.0-34.0); MCHC 33.3 g/dL (31.0-37.0); MCV 89.7 fL (80.0-100.0); MEAN PLATELET VOLUME 9.7 fL (7.4-10.4); MONOCYTES 6.7 % (2-11); NEUTROPHILS 78.5 % (40-80); PLATELET COUNT 343 10x3/uL (130-400); RBC 3.48 10x6/uL (4.00-5.40); RDW 16.3 % (11.5-14.5); WBC 11.2 10x3/uL (4.8-10.8)
[2018-01-03 06:37] LABS: CALC OSMOLALITY 278 mosm/kg (275-300); CALCIUM 7.3 mg/dL (8.5-10.1); CARBON DIOXIDE 24.5 mmol/L (21.0-32.0); CHLORIDE - SERUM 108 mmol/L (98-107); CREATININE - SERUM 0.5 mg/dL (0.6-1.3); GLUCOSE 102 mg/dL (74-106); MAGNESIUM - SERUM 2.2 mg/dL (1.8-2.4); PHOSPHOROUS 1.7 mg/dL (2.5-4.9); POTASSIUM - SERUM 4.4 mmol/L (3.5-5.1); SODIUM 137 mmol/L (136-145); UREA NITROGEN 26 mg/dL (7-18); eGFR NON AFRICAN AMERICAN > 90 mL/min (90-120)
[2018-01-04] VITALS (17 sets, daily range): BP systolic 135–160; BP diastolic 67–87
[2018-01-04 05:47] LABS: BASOPHILS 0 % (0-2); HEMATOCRIT 28.2 % (36.0-48.0); HEMOGLOBIN 9.5 g/dL (12-16); IMMATURE GRANULOCYTES 0.4 % (0-5); MCH 30.2 pg (26.0-34.0); MCHC 33.7 g/dL (31.0-37.0); MCV 89.5 fL (80.0-100.0); MEAN PLATELET VOLUME 9.4 fL (7.4-10.4); MONOCYTES 6.1 % (2-11); NEUTROPHILS 80.5 % (40-80); PLATELET COUNT 336 10x3/uL (130-400); RBC 3.15 10x6/uL (4.00-5.40); RDW 15.7 % (11.5-14.5); WBC 10.7 10x3/uL (4.8-10.8)
[2018-01-04 06:23] LABS: CALC OSMOLALITY 274 mosm/kg (275-300); CALCIUM 7.4 mg/dL (8.5-10.1); CARBON DIOXIDE 26.4 mmol/L (21.0-32.0); CHLORIDE - SERUM 102 mmol/L (98-107); CREATININE - SERUM 0.5 mg/dL (0.6-1.3); GLUCOSE 88 mg/dL (74-106); POTASSIUM - SERUM 3.9 mmol/L (3.5-5.1); SODIUM 137 mmol/L (136-145); eGFR NON AFRICAN AMERICAN > 90 mL/min (90-120)
[2018-01-04 06:24] LABS: UREA NITROGEN 19 mg/dL (7-18)
[2018-01-05 04:00] VITALS: BP 155/70
[2018-01-05 04:45] LABS: BASOPHILS 0 % (0-2); HEMOGLOBIN 8.9 g/dL (12-16); IMMATURE GRANULOCYTES 0.2 % (0-5); LYMPHOCYTES 10.2 % (15-50); MCH 30.3 pg (26.0-34.0); MCHC 34.2 g/dL (31.0-37.0); MCV 88.4 fL (80.0-100.0); MEAN PLATELET VOLUME 9.5 fL (7.4-10.4); MONOCYTES 5.3 % (2-11); NEUTROPHILS 83.3 % (40-80); PLATELET COUNT 338 10x3/uL (130-400); RBC 2.94 10x6/uL (4.00-5.40); RDW 14.5 % (11.5-14.5); WBC 10.6 10x3/uL (4.8-10.8)
[2018-01-05 05:11] LABS: CALC OSMOLALITY 270 mosm/kg (275-300); CALCIUM 7.6 mg/dL (8.5-10.1); CARBON DIOXIDE 27.3 mmol/L (21.0-32.0); CHLORIDE - SERUM 100 mmol/L (98-107); CREATININE - SERUM 0.5 mg/dL (0.6-1.3); GLUCOSE 96 mg/dL (74-106); POTASSIUM - SERUM 3.8 mmol/L (3.5-5.1); SODIUM 134 mmol/L (136-145); eGFR NON AFRICAN AMERICAN > 90 mL/min (90-120)
[2018-01-05 05:26] LABS: UREA NITROGEN 20 mg/dL (7-18)
[2018-01-05 10:55] VITALS: BP 156/73
[2018-01-05 13:31] VITALS: BP 148/79
[2018-01-05 18:13] VITALS: BP 129/72
[2018-01-05 20:00] VITALS: BP 143/84
[2018-01-06] VITALS (7 sets, daily range): BP systolic 123–164; BP diastolic 62–79
[2018-01-06 04:32] LABS: CALC OSMOLALITY 269 mosm/kg (275-300); CALCIUM 7.5 mg/dL (8.5-10.1); CARBON DIOXIDE 24.2 mmol/L (21.0-32.0); CHLORIDE - SERUM 99 mmol/L (98-107); CREATININE - SERUM 0.6 mg/dL (0.6-1.3); GLUCOSE 128 mg/dL (74-106); POTASSIUM - SERUM 3.8 mmol/L (3.5-5.1); SODIUM 131 mmol/L (136-145); eGFR NON AFRICAN AMERICAN > 90 mL/min (90-120)
[2018-01-06 04:37] LABS: UREA NITROGEN 27 mg/dL (7-18)
[2018-01-06 05:08] LABS: BASOPHILS 0 % (0-2); EOSINOPHILS 0.1 % (0-7); IMMATURE GRANULOCYTES 0.4 % (0-5); LYMPHOCYTES 10.1 % (15-50); MCH 30.6 pg (26.0-34.0); MCV 87.4 fL (80.0-100.0); MEAN PLATELET VOLUME 9.5 fL (7.4-10.4); MONOCYTES 6.5 % (2-11); NEUTROPHILS 82.9 % (40-80); PLATELET COUNT 314 10x3/uL (130-400); RDW 14.2 % (11.5-14.5); WBC 12.3 10x3/uL (4.8-10.8)
[2018-01-06 05:12] LABS: HEMOGLOBIN 5.6 g/dL (12-16); RBC 1.83 10x6/uL (4.00-5.40)
[2018-01-06 14:31] LABS: INR 1.15 (0.85-1.17); PROTIME 14.3 SECONDS (11.6-15.0)
[2018-01-06 14:42] LABS: HEMATOCRIT 29.3 % (36.0-48.0)
[2018-01-07 04:54] VITALS: BP 136/75
[2018-01-07 06:29] LABS: CALC OSMOLALITY 268 mosm/kg (275-300); CALCIUM 7.3 mg/dL (8.5-10.1); CARBON DIOXIDE 22.4 mmol/L (21.0-32.0); CHLORIDE - SERUM 100 mmol/L (98-107); CREATININE - SERUM 0.6 mg/dL (0.6-1.3); GLUCOSE 91 mg/dL (74-106); POTASSIUM - SERUM 3.6 mmol/L (3.5-5.1); SODIUM 132 mmol/L (136-145); UREA NITROGEN 24 mg/dL (7-18); eGFR NON AFRICAN AMERICAN > 90 mL/min (90-120)
[2018-01-07 08:50] LABS: BASOPHILS 0.1 % (0-2); EOSINOPHILS 0.4 % (0-7); HEMATOCRIT 22.2 % (36.0-48.0); HEMOGLOBIN 7.7 g/dL (12-16); IMMATURE GRANULOCYTES 0.5 % (0-5); LYMPHOCYTES 9.5 % (15-50); MCH 28.4 pg (26.0-34.0); MCHC 34.7 g/dL (31.0-37.0); MCV 81.9 fL (80.0-100.0); MEAN PLATELET VOLUME 9.5 fL (7.4-10.4); MONOCYTES 9.6 % (2-11); NEUTROPHILS 79.9 % (40-80); PLATELET COUNT 215 10x3/uL (130-400); RBC 2.71 10x6/uL (4.00-5.40); RDW 15.6 % (11.5-14.5); WBC 14.1 10x3/uL (4.8-10.8)
[2018-01-07 09:11] VITALS: BP 114/63
[2018-01-07 13:18] LABS: HEMATOCRIT 24.5 % (36.0-48.0); HEMOGLOBIN 8.6 g/dL (12-16)
[2018-01-07 15:35] VITALS: BP 156/63
[2018-01-07 20:30] VITALS: BP 156/70
[2018-01-08] VITALS (8 sets, daily range): BP systolic 128–182; BP diastolic 66–84
[2018-01-08 10:50] LABS: BASOPHILS 0 % (0-2); EOSINOPHILS 0.2 % (0-7); HEMATOCRIT 34.8 % (36.0-48.0); HEMOGLOBIN 12.3 g/dL (12-16); IMMATURE GRANULOCYTES 0.4 % (0-5); LYMPHOCYTES 5.5 % (15-50); MCH 29.6 pg (26.0-34.0); MCHC 35.3 g/dL (31.0-37.0); MCV 83.9 fL (80.0-100.0); MEAN PLATELET VOLUME 9.9 fL (7.4-10.4); MONOCYTES 6.1 % (2-11); NEUTROPHILS 87.8 % (40-80); PLATELET COUNT 195 10x3/uL (130-400); RBC 4.15 10x6/uL (4.00-5.40); RDW 14.8 % (11.5-14.5); WBC 14.1 10x3/uL (4.8-10.8)
[2018-01-08 10:56] LABS: CALC OSMOLALITY 263 mosm/kg (275-300); CALCIUM 7.3 mg/dL (8.5-10.1); CARBON DIOXIDE 24.1 mmol/L (21.0-32.0); CHLORIDE - SERUM 99 mmol/L (98-107); CREATININE - SERUM 0.6 mg/dL (0.6-1.3); GLUCOSE 96 mg/dL (74-106); POTASSIUM - SERUM 3.6 mmol/L (3.5-5.1); SODIUM 131 mmol/L (136-145); eGFR NON AFRICAN AMERICAN > 90 mL/min (90-120)
[2018-01-08 10:57] LABS: UREA NITROGEN 15 mg/dL (7-18)
[2018-01-09 04:51] VITALS: BP 164/77
[2018-01-09 06:37] LABS: BASOPHILS 0.1 % (0-2); EOSINOPHILS 0.4 % (0-7); HEMATOCRIT 36.9 % (36.0-48.0); HEMOGLOBIN 12.8 g/dL (12-16); IMMATURE GRANULOCYTES 0.5 % (0-5); LYMPHOCYTES 9.6 % (15-50); MCH 29.2 pg (26.0-34.0); MCHC 34.7 g/dL (31.0-37.0); MCV 84.2 fL (80.0-100.0); MONOCYTES 10.2 % (2-11); NEUTROPHILS 79.2 % (40-80); PLATELET COUNT 221 10x3/uL (130-400); RBC 4.38 10x6/uL (4.00-5.40); RDW 15.1 % (11.5-14.5); WBC 12.7 10x3/uL (4.8-10.8)
[2018-01-09 06:52] LABS: CALC OSMOLALITY 263 mosm/kg (275-300); CALCIUM 7.7 mg/dL (8.5-10.1); CARBON DIOXIDE 21.1 mmol/L (21.0-32.0); CHLORIDE - SERUM 99 mmol/L (98-107); CREATININE - SERUM 0.5 mg/dL (0.6-1.3); POTASSIUM - SERUM 3.9 mmol/L (3.5-5.1); SODIUM 132 mmol/L (136-145); UREA NITROGEN 15 mg/dL (7-18); eGFR NON AFRICAN AMERICAN > 90 mL/min (90-120)
[2018-01-09 07:02] LABS: GLUCOSE 70 mg/dL (74-106)
[2018-01-09 08:17] VITALS: BP 157/85
[2018-01-09 13:33] VITALS: BP 158/83
[2018-01-09] MEDS ORDERED: HYDROCODON-ACE1 EAC7 PO (14:00)
[2018-01-26 13:14] LABS: FUNGUS MYCOLOGY CULTURE Final report (())
== END 2018-01-09 15:22 | disposition home health service (06) | DRG 329 ==
LOC: D.ER 13:16 → D.EDHOLD 16:12 → D.ICU 16:12 → D.MS 16:12 → D.ICU 12-26 12:58 → D.MS 01-04 18:06
PROVIDERS: Family Medicine; Internal Medicine Nephrology; Internal Medicine Pulmonary Disease; Surgery
PROC: 0DNW0ZZ Release Peritoneum, Open Approach (ICD-10-PCS; 2017-12-26)
PROC: 05H633Z Insertion of Infusion Device into Left Subclavian Vein, Percutaneous Approach (ICD-10-PCS; 2017-12-26)
PROC: 0DTF0ZZ Resection of Right Large Intestine, Open Approach (ICD-10-PCS; principal; 2017-12-26 13:30)
PROC: 0DN80ZZ Release Small Intestine, Open Approach (ICD-10-PCS; 2017-12-26 13:30)
PROC: 0BC98ZZ Extirpation of Matter from Lingula Bronchus, Via Natural or Artificial Opening Endoscopic (ICD-10-PCS; 2017-12-29)
PROC: 0BC48ZZ Extirpation of Matter from Right Upper Lobe Bronchus, Via Natural or Artificial Opening Endoscopic (ICD-10-PCS; 2017-12-29)
PROC: 0BCB8ZZ Extirpation of Matter from Left Lower Lobe Bronchus, Via Natural or Artificial Opening Endoscopic (ICD-10-PCS; 2017-12-29)
PROC: 0B978ZZ Drainage of Left Main Bronchus, Via Natural or Artificial Opening Endoscopic (ICD-10-PCS; 2017-12-29)
PROC: 0B938ZZ Drainage of Right Main Bronchus, Via Natural or Artificial Opening Endoscopic (ICD-10-PCS; 2017-12-29)
PROC: 0BH17EZ Insertion of Endotracheal Airway into Trachea, Via Natural or Artificial Opening (ICD-10-PCS; 2017-12-29)
PROC: 5A1945Z Respiratory Ventilation, 24-96 Consecutive Hours (ICD-10-PCS; 2017-12-29)
PROC: 0JC80ZZ Extirpation of Matter from Abdomen Subcutaneous Tissue and Fascia, Open Approach (ICD-10-PCS; 2018-01-06)
DX: K56.50 Intestinal adhesions [bands], unspecified as to partial versus complete obstruction (principal); E43 Unspecified severe protein-calorie malnutrition; J18.9 Pneumonia, unspecified organism; J96.21 Acute and chronic respiratory failure with hypoxia; N39.0 Urinary tract infection, site not specified; N17.9 Acute kidney failure, unspecified; Z68.1 Body mass index [BMI] 19.9 or less, adult; J98.11 Atelectasis; T17.590A Other foreign object in bronchus causing asphyxiation, initial encounter; D62 Acute posthemorrhagic anemia; J44.0 Chronic obstructive pulmonary disease with (acute) lower respiratory infection; J44.1 Chronic obstructive pulmonary disease with (acute) exacerbation; F17.203 Nicotine dependence unspecified, with withdrawal; E87.1 Hypo-osmolality and hyponatremia; K91.870 Postprocedural hematoma of a digestive system organ or structure following a digestive system procedure; E86.0 Dehydration; K59.00 Constipation, unspecified; R33.9 Retention of urine, unspecified; E03.9 Hypothyroidism, unspecified; I10 Essential (primary) hypertension; T40.2X5A Adverse effect of other opioids, initial encounter; E16.2 Hypoglycemia, unspecified; F41.8 Other specified anxiety disorders; M79.7 Fibromyalgia; M81.0 Age-related osteoporosis without current pathological fracture; M19.90 Unspecified osteoarthritis, unspecified site; B96.20 Unspecified Escherichia coli [E. coli] as the cause of diseases classified elsewhere; B96.89 Other specified bacterial agents as the cause of diseases classified elsewhere; R13.12 Dysphagia, oropharyngeal phase

== ENCOUNTER 2018-01-11 17:57 | Emergency (ER) | payer MEDICARE, MEDICAID ==
[~2018-01-11] VITALS: Ht 157.5 cm; Wt 50.0 kg
[~2018-01-11 17:57] MED LIST changes: +HYDROCODON-ACE1 EAC7 PO
[2018-01-11 17:59] VITALS: Ht 157.5 cm; Wt 50.0 kg
[2018-01-11 20:44] VITALS: BP 173/89
== END 2018-01-11 20:46 | disposition home or self-care (01) ==
LOC: D.ER 17:57
DX: L76.32 Postprocedural hematoma of skin and subcutaneous tissue following other procedure (principal); Z98.890 Other specified postprocedural states; I10 Essential (primary) hypertension; F17.200 Nicotine dependence, unspecified, uncomplicated

== ENCOUNTER 2018-04-20 13:20 | Inpatient (IN) | payer MEDICARE, MEDICAID ==
[~2018-04-20] VITALS: Ht 157.5 cm; Wt 27.7 kg
[2018-04-20 15:26] LABS: HEMATOCRIT 29.1 % (36.0-48.0); HEMOGLOBIN 10.1 g/dL (12-16); LYMPHOCYTES 13.4 % (15-50); MCH 32.4 pg (26.0-34.0); MCHC 34.7 g/dL (31.0-37.0); MCV 93.3 fL (80.0-100.0); MEAN PLATELET VOLUME 10.3 fL (7.4-10.4); NEUTROPHILS 79.1 % (40-80); PLATELET COUNT 408 10x3/uL (130-400); RBC 3.12 10x6/uL (4.00-5.40); RDW 17.5 % (11.5-14.5); WBC 13.5 10x3/uL (4.8-10.8)
[2018-04-20 15:40] LABS: ALBUMIN 2.7 g/dL (3.4-5.0); ANION GAP 18.3 mmol/L (8-16); BILIRUBIN - TOTAL 0.32 mg/dL (0.2-1.3); CALCIUM 9.2 mg/dL (8.5-10.1); CARBON DIOXIDE 22.2 mmol/L (21.0-32.0); CREATININE - SERUM 1.8 mg/dL (0.6-1.3); POTASSIUM - SERUM 3.5 mmol/L (3.5-5.1); PROTEIN - SERUM 7.4 g/dL (6.4-8.2)
--- NOTE | 2018-04-20 15:57 | MORECARE ---
CASE MANAGEMENT DISCHARGE SUMMARY PATIENT: DANIELA MONGE UNIT: [id number] ADM DATE: 04/20/18 AGE: 83 : 37 SEX: F ROOM/BED: D.1207 AUTHOR: WILMERDOC PHYSICIAN: REFERRING PHYSICIAN: NAREN MAHARAJ MD DATE OF SERVICE: 04/20/18 Discharge Plan Patient Name: DANIELA MONGE Facility: [facility]:[place] : 1935 Planned Disposition: Anticipated Discharge Date: 04/24/18 Discharge Date: Expected LOS: 4 Initial Reviewer: [email or web address] Initial Review Date: 04/20/2018 Generated: 04/20/18 4:57 pm DCP- Discharge Planning Updated by [email or web address]: Xiao Win on 04/20/18 2:[address] Patient Name: DANIELA MONGE Admission Status: ER Accout number: [id number] Admission Date: 04-20-2018 : 1935 Admission Diagnosis: Attending: NAREN MAHARAJ Current LOS: 1 Anticipated DC Date: 04-24-2018 Planned Disposition: Primary Insurance: [facility] MEDICARE SOLUTIONS Discharge Planning Comments: CM met with patient to complete initial dc planning assessment. CM educated patient on the CM role and verbal consent given by patient to complete assessment. Patient lives at home and reports her son lives with her. At discharge patient plans to return home and her daughter will be staying with her and feels this is a safe discharge. CM discussed availability of home health, rehab services, and medical equipment. Patient denied known discharge needs at this time. CM will continue to follow and will assist as needed with dc plans/needs. Flag Signalman: Xiao Win RN, [facility] DCPIA - Discharge Planning Initial Assessment Updated by [email or web address]: Xiao Win on 04/20/18 3:49 pm * Is the patient Alert and Oriented? Yes * PCP Dr. Saldivar * Pharmacy [facility] * Preadmission Environment Home with Family * ADLs Partial Dependent * Equipment Oxygen Walker * Other Equipment Uses her O2 at [facility]. Oxygen provider is [facility]. * List name and contact numbers for known caregivers / representatives who currently or will assist patient after discharge: Slava Monge - son [phone] Sharon Fernando [phone] * Verbal permission to speak to the caregivers and representatives has been obtained from the patient. Yes * Community resources currently utilized None * Please name any agencies selected above. [facility] * Additional services required to return to the preadmission environment? No * Can the patient safely return to the preadmission environment? Yes * Has this patient been hospitalized within the prior 30 days at any hospital? No Patient Name: DANIELA MONGE Page [id number] at 1557 All edits/amendments must be made on the electronic document DICTATION DATE: 04/20/181555 TOP POLISHER: YAMILET 04/20/181555 RPT#: [id number] DC DATE: STATUS: ADM IN [facility] [address] [place] [address] END OF REPORT
[2018-04-20 17:29] VITALS: BP 148/80; BMI 11.1
--- NOTE | 2018-04-20 19:10 | NUR ---
INTRODUCED SELF TO PATIENT AND FAMILY MEMBER AT BEDSIDE. RESTARTED FLUIDS AND ASSISTED PATIENT TO THE RESTROOM. BED IN LOWEST POSITION, CALL LIGHT IN REACH.
--- NOTE | 2018-04-21 01:58 | NUR ---
PATIENT ASLEEP, RESPIRATIONS EVEN AND UNLABORED, FAMILY MEMBER ASLEEP.
[2018-04-21 04:11] VITALS: BP 110/70
--- NOTE | 2018-04-21 05:58 | NUR ---
PATIENT GIVEN 0600 MEDS, TAKEN W/O DIFFICULTY. PLEASANT AFFECT, RESP EVEN AND UNLABORED.
--- NOTE | 2018-04-21 06:20 | NUR ---
PATIENT FAMILY STATES THAT PATIENT IS ON SYNTHROID DAILY AT HOME. ADVISED PT CURRENTLY DID NOT HAVE ORDER FOR SYNTHROID AND WOULD PASS ON TO DAYSHIFT. PT EXPRESSED PAIN 5/10, RENEWED HYDROCODONE ORDER THAT FELL OFF FROM PHARMACY.
[2018-04-21 07:25] LABS: ANION GAP 14.7 mmol/L (8-16); BILIRUBIN - TOTAL 0.38 mg/dL (0.2-1.3); CALCIUM 7.9 mg/dL (8.5-10.1); CARBON DIOXIDE 22.7 mmol/L (21.0-32.0); POTASSIUM - SERUM 3.4 mmol/L (3.5-5.1)
[2018-04-21 07:30] LABS: ALBUMIN 1.7 g/dL (3.4-5.0); PROTEIN - SERUM 5.3 g/dL (6.4-8.2)
[2018-04-21 07:50] LABS: HEMATOCRIT 23.6 % (36.0-48.0); MCHC 33.9 g/dL (31.0-37.0); MCV 91.5 fL (80.0-100.0); MEAN PLATELET VOLUME 10.6 fL (7.4-10.4); PLATELET COUNT 352 10x3/uL (130-400); RBC 2.58 10x6/uL (4.00-5.40); RDW 16.2 % (11.5-14.5); WBC 12.4 10x3/uL (4.8-10.8)
--- NOTE | 2018-04-21 08:15 | NUR ---
PT LAYING IN BED THIS AM, AWOKEN EASILY TO VERBAL STIMULI. RESPIRATIONS EVEN AND UNLABORED, NO S/S OF DISTRESS NOTED. UPPER LOBE WHEEZES NOTED, BOTTOM LOBES CLEAR TO AUSCULTATION. DENIES NEEDS AT THIS TIME. BED LOW AND LOCKED, SR UP X2, CL IN EASY REACH. WILL CONTINUE TO MONITOR.
[2018-04-21 08:24] VITALS: BP 104/60
[2018-04-21 08:51] LABS: LYMPHOCYTES 19 % (15-50); MONOCYTES 4 % (2-11); NEUTROPHILS 73 % (40-80); PLATELET ESTIMATE NORMAL
[2018-04-21 11:40] VITALS: BP 116/60
--- NOTE | 2018-04-21 12:55 | NUR ---
AWAKE AND ALERT. ORIENTED X3. NO C/O AT THIS TIME. SITTING UP IN BED EATING LUNCH.
[2018-04-21 13:53] VITALS: Ht 157.5 cm; Wt 27.7 kg
[2018-04-21 16:43] VITALS: BP 142/75
[2018-04-21 20:36] VITALS: BP 118/61
[2018-04-22] VITALS: BP 85/50
--- NOTE | 2018-04-22 07:45 | NUR ---
PT RESTING IN BED EATING BREAKFAST. NO C/O PAIN. NO S/S OF ACUTE DISTRESS NOTED. PT ALERT AND ORIENTED. UP WITH ASSIST. DAUGHTER AT BEDSIDE. ABRASIONS TO BILATERAL KNEES, D/T PETS AT HOME. WHEEZES ASCULTATED BILATERAL LUNGS. ON ELECTROLYTE PROTOCOL. 2L O2, NC. IV TO RIGHT FOREARM, SITE PATENT WITHOUT REDNESS OR SWELLING. LR INFUSING @ 125ML/HR. PT DENIES ANYTHING FURTHER AT THIS TIME. CALL LIGHT IN REACH. WILL CONTINUE TO MONITOR.
[2018-04-22 08:25] VITALS: BP 129/77
[2018-04-22 12:02] VITALS: BP 112/67
[2018-04-22 14:16] LABS: BASOPHILS 0.8 % (0-2); EOSINOPHILS 0.4 % (0-7); HEMATOCRIT 24.6 % (36.0-48.0); HEMOGLOBIN 8.1 g/dL (12-16); IMMATURE GRANULOCYTES 0.9 % (0-5); LYMPHOCYTES 38.3 % (15-50); MCH 30.8 pg (26.0-34.0); MCHC 32.9 g/dL (31.0-37.0); MEAN PLATELET VOLUME 10.2 fL (7.4-10.4); MONOCYTES 9.5 % (2-11); NEUTROPHILS 50.1 % (40-80); PLATELET COUNT 362 10x3/uL (130-400); RBC 2.63 10x6/uL (4.00-5.40); RDW 16.2 % (11.5-14.5)
[2018-04-22 14:23] LABS: MCV 93.5 fL (80.0-100.0); WBC 7.4 10x3/uL (4.8-10.8)
[2018-04-22 14:27] LABS: ANION GAP 10.5 mmol/L (8-16); CALCIUM 7.8 mg/dL (8.5-10.1); CARBON DIOXIDE 25.6 mmol/L (21.0-32.0); CREATININE - SERUM 0.9 mg/dL (0.6-1.3); POTASSIUM - SERUM 4.1 mmol/L (3.5-5.1)
--- NOTE | 2018-04-22 15:51 | NUR ---
PT REQ AND REC'D PRN PAIN MEDICATION AT THIS TIME. WCTM.
[2018-04-22 16:52] VITALS: BP 122/67
--- NOTE | 2018-04-22 18:49 | NUR ---
PT RESTING IN BED, EYES OPEN. DAUGHTER AT BEDSIDE. NO C/O PAIN. NO S/S OF ACUTE DISTRESS NOTED. PT DENIES ANYTHING FURTHER AT THIS TIME. CALL LIGHT IN REACH. WILL CONTINUE TO MONITOR.
[2018-04-22 19:00] VITALS: BP 110/68
[2018-04-23] VITALS: BP 106/61
[2018-04-23 03:00] VITALS: BP 138/84
--- NOTE | 2018-04-23 03:39 | NUR ---
I CONCUR WITH THE GLASS ENGRAVER ASSESSMENT.
--- NOTE | 2018-04-23 08:30 | NUR ---
ANSWERED CALL LIGHT DURING RN AM ROUNDS. PATIENT OOB, STANDING AT BEDSIDE. PATIENT RETURNING FROM RESTROOM. PATIENTS DAUGHTER AT BEDSIDE ALSO. PATIENT REQUESTING KLEENEX. NO DISTRESS. RESP EVEN AND UNLABORED.
[2018-04-23 08:41] LABS: ANION GAP 9.7 mmol/L (8-16); CALCIUM 7.7 mg/dL (8.5-10.1); CARBON DIOXIDE 27.1 mmol/L (21.0-32.0); CREATININE - SERUM 0.8 mg/dL (0.6-1.3); POTASSIUM - SERUM 3.8 mmol/L (3.5-5.1)
[2018-04-23 08:46] LABS: HEMATOCRIT 28.2 % (36.0-48.0); HEMOGLOBIN 9.1 g/dL (12-16); MCH 30.8 pg (26.0-34.0); MCHC 32.3 g/dL (31.0-37.0); MEAN PLATELET VOLUME 10.3 fL (7.4-10.4); PLATELET COUNT 376 10x3/uL (130-400); RBC 2.95 10x6/uL (4.00-5.40); RDW 16.4 % (11.5-14.5); WBC 8.5 10x3/uL (4.8-10.8)
[2018-04-23 08:49] LABS: MCV 95.6 fL (80.0-100.0)
[2018-04-23 09:37] VITALS: BP 124/83
[2018-04-23 09:42] LABS: LYMPHOCYTES 31 % (15-50); MONOCYTES 1 % (2-11); NEUTROPHILS 62 % (40-80); PLATELET ESTIMATE NORMAL
[2018-04-23 09:43] LABS: PLATELET MORPHOLOGY PLT CLUMPS PRESENT
[2018-04-23] MEDS ORDERED: ZITHROMAX500 MG PO (12:09)
[2018-04-23] MEDS ORDERED: SYNTHROID125 MCG PO (12:11)
--- NOTE | 2018-04-23 14:19 | NUR ---
DISCHARGE INSTRUCTIONS GIVEN, VERBALIZES UNDERSTANDING, IV IN RIGHT WRIST D/C'S. CATHTER TIP IN PLACE, APPLIED TWO BANDAGES TO SITE, ESCORTED OUT VIA WHEELCHAIR WITH FAMILY MEMBER. DENIES ANY CURRENT CONCERNS OR QUESTIONS.
--- NOTE | 2018-04-23 15:45 | MORECARE ---
CASE MANAGEMENT DISCHARGE SUMMARY PATIENT: DANIELA MONGE UNIT: [id number] ADM DATE: 04/20/18 AGE: 83 : 37 SEX: F ROOM/BED: D.1207 AUTHOR: KINZA GUILLEN PHYSICIAN: REFERRING PHYSICIAN: NAREN MAHARAJ MD DATE OF SERVICE: 04/23/18 Discharge Plan Patient Name: DANIELA MONGE Facility: [facility]:[place] : 1935 Planned Disposition: Home with Home Health Anticipated Discharge Date: 04/24/18 Discharge Date: 04/23/2018 Expected LOS: 4 Initial Reviewer: [email or web address] Initial Review Date: 04/20/2018 Generated: 04/23/18 4:45 pm DCP- Discharge Planning Updated by [email or web address]: Xiao Win on 04/20/18 2:[address] Patient Name: DANIELA MONGE Admission Status: ER Accout number: [id number] Admission Date: 04-20-2018 : 1935 Admission Diagnosis: Attending: NAREN MAHARAJ Current LOS: 1 Anticipated DC Date: 04-24-2018 Planned Disposition: Primary Insurance: [facility] [employer] Discharge Planning Comments: CM met with patient to complete initial dc planning assessment. CM educated patient on the CM role and verbal consent given by patient to complete assessment. Patient lives at home and reports her son lives with her. At discharge patient plans to return home and her daughter will be staying with her and feels this is a safe discharge. CM discussed availability of home health, rehab services, and medical equipment. Patient denied known discharge needs at this time. CM will continue to follow and will assist as needed with dc plans/needs. Water Softener Installer: Xiao Win RN, [facility] DCPIA - Discharge Planning Initial Assessment Updated by [email or web address]: Xiao Win on 04/20/18 3:49 pm * Is the patient Alert and Oriented? Yes * PCP Dr. Saldivar * Pharmacy [facility] * Preadmission Environment Home with Family * ADLs Partial Dependent * Equipment Oxygen Walker * Other Equipment Uses her O2 at HS. Oxygen provider is [facility]. * List name and contact numbers for known caregivers / representatives who currently or will assist patient after discharge: Slava Monge - son [phone] Sharon Crow - daughter - [phone] * Verbal permission to speak to the caregivers and representatives has been obtained from the patient. Yes * Community resources currently utilized None * Please name any agencies selected above. [facility] * Additional services required to return to the preadmission environment? No * Can the patient safely return to the preadmission environment? Yes * Has this patient been hospitalized within the prior 30 days at any hospital? No Last DP export: 04/20/18 2:57 p Patient Name: DANIELA MONGE Page 55979 at 1545 All edits/amendments must be made on the electronic document DICTATION DATE: 04/23/181544 DENTAL HYGIENE PROFESSOR: YAMILET 04/23/18 1545 RPT#: [id number] DC DATE:04/23/18 STATUS: DIS IN [facility] [address] [place] [address] END OF REPORT
--- NOTE | 2018-04-23 15:52 | MORECARE ---
CASE MANAGEMENT DISCHARGE SUMMARY PATIENT: DANIELA MONGE UNIT: [id number] ADM DATE: 04/20/18 AGE: 83 : 37 SEX: F ROOM/BED: D.1207 AUTHOR: KINZA GUILLEN PHYSICIAN: REFERRING PHYSICIAN: NAREN MAHARAJ MD DATE OF SERVICE: 04/23/18 Discharge Plan Patient Name: DANIELA MONGE Facility: [facility]:[place] : 1935 Planned Disposition: Home with Home Health Anticipated Discharge Date: 04/24/18 Discharge Date: 04/23/2018 Expected LOS: 4 Initial Reviewer: [email or web address] Initial Review Date: 04/20/2018 Generated: 04/23/18 4:52 pm Comments DCP- Discharge Planning Updated by [email or web address]: Alishawinston Shi on 04/23/18 2:[address] LATE ENTRY 1345 CM RECEIVED TELEPHONE CALL THAT PATIENT IS READY FOR DISCHARGE TO HOME. SHE HAD A HOME HEALTH ORDER FOR ice H/H. IT WOULD HAVE BEEN SOMETIME DUE TO 3 PREVIOUS REFERRALS CM REQUEST THAT THE NURSE CHECK THE PATIENT INFORMATION AND OBTAIN POC FORM. THE ORDER IS FOR [facility]. THE PATIENT IS IN AGREEMENT. 1530 TC TO [facility]. SPOKE WITH ABAD. FAXED REFERRAL . [facility] WILL CALL THE PATIENT REGARDING VISIT DATE. DCP- Discharge Planning Updated by [email or web address]: Xiaowinston Win on 04/20/18 2:[address] Patient Name: DANIELA MONGE Admission Status: ER Accout number: [id number] Admission Date: 04-20-2018 : 1935 Admission Diagnosis: Attending: NAREN MAHARAJ Current LOS: 1 Anticipated DC Date: 04-24-2018 Planned Disposition: Primary Insurance: [facility] [employer] Discharge Planning Comments: CM met with patient to complete initial dc planning assessment. CM educated patient on the CM role and verbal consent given by patient to complete assessment. Patient lives at home and reports her son lives with her. At discharge patient plans to return home and her daughter will be staying with her and feels this is a safe discharge. CM discussed availability of home health, rehab services, and medical equipment. Patient denied known discharge needs at this time. CM will continue to follow and will assist as needed with dc plans/needs. Spring Coverer: Xiao Win RN, [facility] DCPIA - Discharge Planning Initial Assessment Updated by [email or web address]: Xiao Win on 04/20/18 3:49 pm * Is the patient Alert and Oriented? Yes * PCP Dr. Saldivar * Pharmacy [facility] * Preadmission Environment Home with Family * ADLs Partial Dependent * Equipment Oxygen Walker * Other Equipment Uses her O2 at HS. Oxygen provider is [facility]. * List name and contact numbers for known caregivers / representatives who currently or will assist patient after discharge: Slava Monge - son [phone] Sharon Fernando daughter - [phone] * Verbal permission to speak to the caregivers and representatives has been obtained from the patient. Yes * Community resources currently utilized None * Please name any agencies selected above. [facility] * Additional services required to return to the preadmission environment? No * Can the patient safely return to the preadmission environment? Yes * Has this patient been hospitalized within the prior 30 days at any hospital? No Last DP export: 04/23/18 2:45 p Patient Name: DANIELA MONGE Page 93090 at 1552 All edits/amendments must be made on the electronic document DICTATION DATE: 04/23/181550 IMPROVEMENT INTERN: YAMILET 04/23/181550 RPT#: [id number] DC DATE:04/23/18 STATUS: DIS IN [facility] [address] [place] [address] END OF REPORT
--- NOTE | 2018-04-23 15:58 | MORECARE ---
CASE MANAGEMENT DISCHARGE SUMMARY PATIENT: DANIELA MONGE UNIT: [id number] ADM DATE: 04/20/18 AGE: 83 : 37 SEX: F ROOM/BED: D.1207 AUTHOR: KINZA GUILLEN PHYSICIAN: REFERRING PHYSICIAN: NAREN MAHARAJ MD DATE OF SERVICE: 04/23/18 Discharge Plan Patient Name: DANIELA MONGE Facility: [facility]:[place] : 1935 Planned Disposition: Home with Home Health Anticipated Discharge Date: 04/24/18 Discharge Date: 04/23/2018 Expected LOS: 4 Initial Reviewer: [email or web address] Initial Review Date: 04/20/2018 Generated: 04/23/18 4:58 pm Comments DCP- Discharge Planning Updated by [email or web address]: Alishawinston Shi on 04/23/18 2:[address] LATE ENTRY 1345 CM RECEIVED TELEPHONE CALL THAT PATIENT IS READY FOR DISCHARGE TO HOME. SHE HAD A HOME HEALTH ORDER FOR HASH H/H. IT WOULD HAVE BEEN SOMETIME DUE TO 3 PREVIOUS REFERRALS CM REQUEST THAT THE NURSE CHECK THE PATIENT INFORMATION AND OBTAIN POC FORM. THE ORDER IS FOR [facility]. THE PATIENT IS IN AGREEMENT. 1530 TC TO [facility]. SPOKE WITH ABAD. FAXED REFERRAL . THEY WILL CALL THE PATIENT REGARDING VISIT DATE. FAXED REFERRAL. DCP- Discharge Planning Updated by [email or web address]: Xiaowinsotn Win on 04/20/18 2:[address] Patient Name: DANIELA MONGE Admission Status: ER Accout number: [id number] Admission Date: 04-20-2018 : 1935 Admission Diagnosis: Attending: NAREN MAHARAJ Current LOS: 1 Anticipated DC Date: 04-24-2018 Planned Disposition: Primary Insurance: [facility] MEDICARE SOLUTIONS Discharge Planning Comments: CM met with patient to complete initial dc planning assessment. CM educated patient on the CM role and verbal consent given by patient to complete assessment. Patient lives at home and reports her son lives with her. At discharge patient plans to return home and her daughter will be staying with her and feels this is a safe discharge. CM discussed availability of home health, rehab services, and medical equipment. Patient denied known discharge needs at this time. CM will continue to follow and will assist as needed with dc plans/needs. Site Technician: Xiao Win RN, [facility] DCPIA - Discharge Planning Initial Assessment Updated by [email or web address]: Xiao Win on 04/20/18 3:49 pm * Is the patient Alert and Oriented? Yes * PCP Dr. Saldivar * Pharmacy [facility] * Preadmission Environment Home with Family * ADLs Partial Dependent * Equipment Oxygen Walker * Other Equipment Uses her O2 at HS. Oxygen provider is [facility]. * List name and contact numbers for known caregivers / representatives who currently or will assist patient after discharge: Slava Monge - son [phone] Sharon Fernando daughter - [phone] * Verbal permission to speak to the caregivers and representatives has been obtained from the patient. Yes * Community resources currently utilized None * Please name any agencies selected above. [facility] * Additional services required to return to the preadmission environment? No * Can the patient safely return to the preadmission environment? Yes * Has this patient been hospitalized within the prior 30 days at any hospital? No Last DP export: 04/23/18 2:52 p Patient Name: DANIELA MONGE Page 68810 at 1558 All edits/amendments must be made on the electronic document DICTATION DATE: 04/23/181557 WEALTH MANAGEMENT ADVISOR: YAMILET 04/23/181557 RPT#: [id number] DC DATE:04/23/18 STATUS: DIS IN [facility] [address] [place] [address] END OF REPORT
--- NOTE | 2018-04-24 10:31 | MORECARE ---
CASE MANAGEMENT DISCHARGE SUMMARY PATIENT: DANIELA MONGE UNIT: [id number] ADM DATE: 04/20/18 AGE: 83 : 37 SEX: F ROOM/BED: D.1207 AUTHOR: KINZA GUILLEN PHYSICIAN: REFERRING PHYSICIAN: NAREN MAHARAJ MD DATE OF SERVICE: 04/24/18 Discharge Plan Patient Name: DANIELA MONGE Facility: [facility]:[place] : 1935 Planned Disposition: Home with Home Health Anticipated Discharge Date: 04/24/18 Discharge Date: 04/23/2018 Expected LOS: 4 Initial Reviewer: [email or web address] Initial Review Date: 04/20/2018 Generated: 04/24/18 11:31 am Comments DCP- Discharge Planning Updated by [email or web address]: Alishawinston Shi on 04/23/18 2:[address] LATE ENTRY 1345 CM RECEIVED TELEPHONE CALL THAT PATIENT IS READY FOR DISCHARGE TO HOME. SHE HAD A HOME HEALTH ORDER FOR [employer] H/H. IT WOULD HAVE BEEN SOMETIME DUE TO 3 PREVIOUS REFERRALS CM REQUEST THAT THE NURSE CHECK THE PATIENT INFORMATION AND OBTAIN POC FORM. THE ORDER IS FOR [facility]. THE PATIENT IS IN AGREEMENT. 1530 TC TO [facility]. SPOKE WITH ABAD. FAXED REFERRAL . THEY WILL CALL THE PATIENT REGARDING VISIT DATE. FAXED REFERRAL. DCP- Discharge Planning Updated by [email or web address]: Xiaowinston Win on 04/20/18 2:[address] Patient Name: DANIELA MONGE Admission Status: ER Accout number: [id number] Admission Date: 04-20-2018 : 1935 Admission Diagnosis: Attending: NAREN MAHARAJ Current LOS: 1 Anticipated DC Date: 04-24-2018 Planned Disposition: Primary Insurance: [facility] MEDICARE SOLUTIONS Discharge Planning Comments: CM met with patient to complete initial dc planning assessment. CM educated patient on the CM role and verbal consent given by patient to complete assessment. Patient lives at home and reports her son lives with her. At discharge patient plans to return home and her daughter will be staying with her and feels this is a safe discharge. CM discussed availability of home health, rehab services, and medical equipment. Patient denied known discharge needs at this time. CM will continue to follow and will assist as needed with dc plans/needs. Cloth Stretcher: Xiao Win RN, [facility] DCPIA - Discharge Planning Initial Assessment Updated by [email or web address]: Xiao Win on 04/20/18 3:49 pm * Is the patient Alert and Oriented? Yes * PCP Dr. Saldivar * Pharmacy [facility] * Preadmission Environment Home with Family * ADLs Partial Dependent * Equipment Oxygen Walker * Other Equipment Uses her O2 at HS. Oxygen provider is [facility]. * List name and contact numbers for known caregivers / representatives who currently or will assist patient after discharge: Slava Monge - son [phone] Sharon Fernando daughter - [phone] * Verbal permission to speak to the caregivers and representatives has been obtained from the patient. Yes * Community resources currently utilized None * Please name any agencies selected above. [facility] * Additional services required to return to the preadmission environment? No * Can the patient safely return to the preadmission environment? Yes * Has this patient been hospitalized within the prior 30 days at any hospital? No Last DP export: 04/23/18 2:58 p Patient Name: DANIELA MONGE Page 23300 at 1031 All edits/amendments must be made on the electronic document DICTATION DATE: 04/24/18 1031 LAST TURNER: YAMILET 04/24/18 1031 RPT#: [id number] DC DATE:04/23/18 STATUS: DIS IN [facility] [address] [place] [address] END OF REPORT
--- NOTE | 2018-04-25 15:01 | EC ---
PATIENT:DANIELA OMNGE DATE OF SERVICE: 04/20/18 SEX: F MEDICAL RECORD: [id number] DATE OF : [birth year] LOCATION:D.M3 D.120 AGE OF PATIENT: 83 ADMISSION DATE: 04/20/18 REFERRING PHYSICIAN: INTERPRETING PHYSICIAN: RICHA VALDEZ MD ECHOCARDIOGRAM REPORT ECHO CHARGES 4 ECHO COMPLETE Date: 04/21/18 CLINICAL DIAGNOSIS: ECHOCARDIOGRAPHIC MEASUREMENTS (adult normal given) AC root (d.<3.7cm) 2.5 cm LV Septum d (<1.2 cm> 0.7 cm Valve Excursion 1.5 cm LV Septum (systole) 1.1 cm Left Atria (s.<4.0cm> 3.7 cm LVPW d(<1.2cm) 1.0 cm RV (d.<2.3cm) 2.1 cm LVPW (sytole) 1.5 cm LV diastole(<5.6CM) 4.6 cm MV E-F(>70mm/sec) cm LV systole 3.1 cm LVOT Diameter 1.4 cm MV exc.(>10mm) cm Est.ejection fraction (50-75%) % DOPPLER: LVIT cm/sec A 126 cm/sec E 71.0 cm/sec LA cm/sec RVSP 33.4 mmHg LVOT 110 cm/sec AOP1/2T m/s Asc. Ao 159 cm/sec RVOT 56.0 cm/sec RA cm/sec PA 82.0 cm/sec AV Gradient Peak 10.2 mmHg AV Mean 4.4 mmHg AV Area 1.2 cm MV Gradient Peak 6.1 mmHg MV Mean 1.6 mmHg MV Area cm COMMENTS: Respiratory Care Assistant: Kirsty GALARZAOE Ski Topper: 3 Dr. Ochoa TAPE# PACS Pericardial Effusion N DATE OF SERVICE: 04/22/2018 Adequate 2D, color flow, spectral Doppler, and M-mode. No LVH. LV internal dimensions are normal. 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 Aortic valve sclerosis without stenosis by Doppler interrogation. Left atrium is normal at 3.7 cm. Mitral valve reveals prolapse. Mild MR. Right-sided chamber is grossly normal. Moderate TR. RV systolic pressure is estimated at greater than or equal to 33 mmHg via the continuity equation. ECHOCARDIOGRAM REPORT [id number] DANIELA MONGE TRANSINT:[id number] Voice Confirmation ID: [id number] DOCUMENT ID: [id number] RICHA VALDEZ MD at 1501 CC: [id number] DICTATION DATE: 04/22/18 1146 CHEST PAINTING AND SEALING SUPERVISOR: 04/22/18 1304 DIS IN 04/23/18 [place] [id number] [place] [id number]
== END 2018-04-23 14:20 | disposition home health service (06) | DRG 190 ==
LOC: D.ER 13:20 → D.M3 15:18 → D.EDHOLD 15:18 → D.M3 15:35
PROVIDERS: Family Medicine; ADMIT Emergency Medicine
DX: J44.0 Chronic obstructive pulmonary disease with (acute) lower respiratory infection (principal); J18.9 Pneumonia, unspecified organism; F17.213 Nicotine dependence, cigarettes, with withdrawal; N17.9 Acute kidney failure, unspecified; D64.9 Anemia, unspecified

== ENCOUNTER 2019-02-21 10:24 | Outpatient (CLI) | payer OTHER, MEDICAID ==
[~2019-02-21] VITALS: Ht 157.5 cm; Wt 31.8 kg
[~2019-02-21 10:24] MED LIST changes: +SYNTHROID125 MCG PO; +ZITHROMAX500 MG PO
[2019-02-21] MEDS ORDERED: LISINOPRIL2.5 MG PO (11:28)
[2019-02-21 11:35] VITALS: BP 94/53; Ht 157.5 cm; Wt 31.8 kg
--- NOTE | 2019-02-21 13:09 | NUR ---
1240 DENIES PROBLEMS RATE INCREASED TO 175/CC/HR. DAUGHTER AT SIDE
--- NOTE | 2019-02-21 17:13 | NUR ---
1622 BLOOD HAS COMPLETED WITHOUT PROBLEMS. PT HAS VOIDED SEVERAL TIMES. DENIES PROBLEMS. LINE BEING FLUSHED WITH SALINE 1650 LINE FLUSHED IV DC'D WITH CATH INTACT 1710 DC INSTS GIVEN VOICED UNDERSTANDING RELEASED IN WC DAUGHTER WELFARE DIRECTOR HOME.
== END 2019-02-21 17:10 | disposition home or self-care (01) ==
LOC: D.OPS 10:24
PROVIDERS: ATTEND Emergency Medicine
DX: D64.9 Anemia, unspecified (principal)

== ENCOUNTER → 2019-03-20 14:54 | Outpatient (CLI) | payer OTHER, MEDICAID ==
[2019-02-21 11:35] VITALS: BMI 12.8
[~2019-03-20 14:54] MED LIST changes: +LISINOPRIL2.5 MG PO
[2019-03-20 15:29] LABS: BASOPHILS 0.6 % (0-2); EOSINOPHILS 1.6 % (0-7); HEMATOCRIT 30.3 % (36.0-48.0); HEMOGLOBIN 9.6 g/dL (12-16); IMMATURE GRANULOCYTES 0.2 % (0-5); LYMPHOCYTES 36.5 % (15-50); MCH 26.6 pg (26.0-34.0); MCHC 31.7 g/dL (31.0-37.0); MCV 83.9 fL (80.0-100.0); MEAN PLATELET VOLUME 9.7 fL (7.4-10.4); MONOCYTES 5.9 % (2-11); NEUTROPHILS 55.2 % (40-80); PLATELET COUNT 384 10x3/uL (130-400); RBC 3.61 10x6/uL (4.00-5.40); RDW 19.7 % (11.5-14.5); WBC 8.7 10x3/uL (4.8-10.8)
== END | disposition home or self-care (01) ==
LOC: D.RAD 14:54
PROVIDERS: ATTEND Internal Medicine Gastroenterology
DX: R19.7 Diarrhea, unspecified (principal); D64.9 Anemia, unspecified; K92.1 Melena